=== PATIENT | male | born 1935 | race Caucasian/White ===

== ENCOUNTER 2019-06-05 10:36 | Emergency (ER) | payer OTHER, SELFPAY ==
[2019-06-05 10:43] VITALS: BP 151/71; PULSE 65; RESP 18; TEMP 36.7; O2SAT 98
[2019-06-05 11:20] LABS: Add Manual Diff / Slide Review NO; Basophils Absolute Auto 100 /uL (0-100); Basophils Percent Auto 0.8 % (0-2); Eosinophils Absolute Auto 400 /uL (0-450); Eosinophils Percent Auto 3.3 % (2-4); Hematocrit 35.8 % (41-53); Lymphocytes Absolute Auto 900 /uL (1100-4500); Lymphocytes Percent Auto 8.8 % (25-40); Mean Corpuscular HGB Conc 33.6 % (30-36); Mean Corpuscular Hemoglobin 32.3 PG (26-34); Mean Corpuscular Volume 96.2 fL (80-100); Monocytes Absolute Auto 700 /uL (0-900); Monocytes Percent Auto 6.2 % (3-14); Neutrophils Absolute Auto 8600 /uL (1500-7000); Neutrophils Percent Auto 80.9 % (50-75); Platelet Count 163 X10^3/uL (150-400); Red Blood Cell Count 3.72 X10^6/uL (4.5-5.9); Red Cell Distribution Width 15.3 % (11.6-14.8); White Blood Cell Count 10.6 X10^3/uL (4.5-11.0)
[2019-06-05 11:25] LABS: INR 2.1 (0.9-1.3); Prothrombin Time 23.9 SECONDS (10.1-12.7)
[2019-06-05 11:28] LABS: PTT Partial Thromboplastin Tim 35 SECONDS (26.4-36.2)
[2019-06-05 11:29] LABS: Alanine Aminotransferase 19 IU/L (21-72); Albumin 3.9 g/dL (3.5-5.0); Albumin Globulin Ratio 1.4 (1.0-2.8); Alkaline Phosphatase 62 U/L (38-126); Aspartate Aminotransferase 26 IU/L (17-59); BUN Creatinine Ratio 23.5 (6-22); Bilirubin Total 0.9 mg/dL (0.2-1.3); Blood Urea Nitrogen 40 mg/dL (9-20); Calcium 9.3 mg/dL (8.4-10.2); Carbon Dioxide 27 mmol/L (22-32); Chloride 107 mmol/L (98-107); Creatine Kinase 72 U/L (55-170); Estimated Glomerular Filt Rate 38.6 mL/min (>60); Globulin 2.7 g/dL (1.7-4.1); Glucose 113 mg/dL (80-110); HEMOLYSIS < 15 (0-50); Potassium 4.1 mmol/L (3.4-5.1); Sodium 143 mmol/L (137-145); Total Protein 6.6 g/dL (6.3-8.2)
[2019-06-05 11:40] LABS: Troponin I 0.015 ng/mL (0.01-0.034)
--- NOTE | 2019-06-05 12:16 | PC.NURSE ---
Pt has multiple vague complaints. States his stomach felt funny this morning, but this is resolved. Denies any chest pain or shortness of breath. States he had some increased swelling in his lower legs and this recently went way down and he lost 15 pounds. He uses a motorized w/c to get around. He can walk with a cane and some assistive leg braces. He feels he has not been drinking enough water lately. Pt is pink, warm, and dry. Does not appear to be in any acute distress. Easy work of breathing. Gave PO liquids to drink, per Dr. Arreguin.
--- NOTE | 2019-06-05 12:29 | ED.WEAKNESS ---
HPI - Weakness General Chief complaint: Weakness Stated complaint: unsteady,stomach 'bothering' him Time Seen by Provider: 06/05/19 12:05 Source: patient Mode of arrival: wheelchair Limitations: no limitations History of Present Illness HPI Narrative: PATIENT IS A 83-YEAR-OLD MALE WHEELCHAIR-BOUND PRESENTING WITH LIGHTHEADEDNESS. He states he is able to stand up and get dressed. Today when he did he got a little dizzy lightheaded he did not pass out. He has been having intermittent abdominal pain ongoing for the last 3 weeks. He has pain and then he has a bowel movement and feels better. He has no chest pain or heart palpitations no shortness of breath. No fevers. He overall is feeling better and requesting to go home at this time. He states he was started on furosemide for extreme lower extremity edema. He was taking 1 tablet a day. His primary a told him to take half a tablet every other day and that started yesterday. MD Complaint: generalized weakness Related Data Home Medications Medication Instructions Recorded Confirmed metoprolol tartrate 25 mg PO DAILY #0 04/14/13 06/05/19 morphine 1 tab PO BIDP PRN #0 04/14/13 06/05/19 allopurinol 300 mg PO DAILY #0 06/12/16 06/05/19 amlodipine [Norvasc] 2.5 mg PO QPM #0 05/31/17 06/05/19 atorvastatin [Lipitor] 40 mg PO BEDTIME #0 05/31/17 06/05/19 lisinopril 40 mg PO BID #0 05/31/17 06/05/19 prednisone 10 mg PO DAILY #0 05/31/17 06/05/19 warfarin [Coumadin] 2.5 mg PO SEE INSTRUCTIONS #0 05/31/17 06/05/19 furosemide 40 mg OR DAILY #0 06/30/17 06/05/19 potassium chloride 20 meq PO QPM 06/05/19 06/05/19 Allergies Allergy/AdvReac Type Severity Reaction Status Date / Time No Known Drug Allergies Allergy Unknown Verified 06/05/19 10:54 [NO KNOWN DRUG ALLERGIES] ALL METALS Allergy Mild TURNS Uncoded 01/25/18 12:15 GREEN TITANIUM IS OK Review of Systems Review of Systems ROS Unobtainable: All systems reviewed & are unremarkable except as noted in HPI and below Constitutional Denies chills, Denies fever(s), Denies lethargy and Reports weakness ENT Ears, Nose, Mouth, and Throat: Denies change in voice, Denies neck pain and Denies sore throat Cardiovascular Reports lightheadedness, Denies dyspnea and Denies dyspnea on exertion Respiratory Denies cough, Denies dyspnea, Denies dyspnea on exertion and Denies wheezing Gastrointestinal Gastrointestinal: Denies abdominal pain, Denies change in bowel habits, Denies diarrhea, Denies nausea and Denies vomiting Genitourinary Denies hematuria, Denies flank pain, Denies urinary incontinence and Denies urinary urgency Musculoskeletal Denies neck pain Integumentary/Breasts Denies pruritus, Denies erythema, Denies rash and Denies wounds Neurologic Reports weakness Allergic/Immunologic Denies wheezing [facility]LY [facility] Medical History Hyperlipidemia (Acute) Hypertension (Acute) Social History Smoking Status: Never smoker Social History Smoking Status: Never smoker Exam Initial Vital Signs Initial Vital Signs: Vital Signs Temperature 98.1 F 06/05/19 10:43 Pulse Rate 65 06/05/19 10:43 Respiratory Rate 18 06/05/19 10:43 Blood Pressure 151/71 H 06/05/19 10:43 Pulse Oximetry 98 06/05/19 10:43 GENERAL: Well-appearing male in wheelchair HEENT: Head atraumatic,EOMI, pupils reactive, face symmetric, [moist] mucous membranes CARDIOVASCULAR: Regular rate and rhythm without murmurs, rubs or gallops. RESPIRATORY: Breath sounds equal bilaterally, no wheezes rales or rhonchi. ABDOMEN: Soft, nontender. Normoactive bowel sounds all 4 quadrants. No guarding or rebound. EXTREMITIES: Normal range of motion, no clubbing or edema. Neurovascularly intact NEUROLOGICAL: Alert and oriented x4. Speech is normal SKIN: Warm, dry, no laceration, no petechiae, no rashes or lesions. Course Orders Ordered: ED Orders 06/05/19 11:07 Complete Blood Count AUTO DIFF Stat Comprehensive Metabolic Panel Stat Partial Thromboplastin Time Stat Prothrombin Time INR Stat Troponin & CK Cardiac Panel Stat 06/05/19 11:58 EKG-12 Lead Stat Vital Signs - 8 hr 06/05/19 10:43 06/05/19 12:46 Temperature 98.1 F Pulse Rate 65 71 Respiratory Rate 18 12 Blood Pressure 151/71 H Blood Pressure [Left Arm] 140/73 Pulse Oximetry 98 97 MDM - Weakness Lab Data Attestation: I reviewed the patient's lab results. Result diagrams: 06/05/19 11:07 06/05/19 11:07 Lab Results 06/05/19 06/05/19 06/05/19 Range/Units 11:07 11:07 11:07 WBC 10.6 (4.5-11.0) X10^3/uL RBC 3.72 L (4.5-5.9) X10^6/uL Hgb 12.0 L (13.5-17.5) g/dL Hct 35.8 L (41-53) % MCV 96.2 (80-100) fL MCH 32.3 (26-34) PG MCHC 33.6 (30-36) % RDW 15.3 H (11.6-14.8) % Plt Count 163 (150-400) X10^3/uL Neut % (Auto) 80.9 H (50-75) % Lymph % (Auto) 8.8 L (25-40) % Cameron % (Auto) 6.2 (3-14) % Eos % (Auto) 3.3 (2-4) % Baso % (Auto) 0.8 (0-2) % Neut # (Auto) 8600 H (9604-3106) /uL Lymph # (Auto) 900 L (5799-1979) /uL Cameron # (Auto) 700 (0-900) /uL Eos # (Auto) 400 (0-450) /uL Baso # (Auto) 100 (0-100) /uL PT 23.9 H (10.1-12.7) SECONDS INR 2.1 H (0.9-1.3) APTT 35 (26.4-36.2) SECONDS Sodium 143 (137-145) mmol/L Potassium 4.1 (3.4-5.1) mmol/L Chloride 107 (98-107) mmol/L Carbon Dioxide 27 (22-32) mmol/L BUN 40 H (9-20) mg/dL Creatinine 1.70 H (0.66-1.25) mg/dL Estimated GFR 38.6 L (>60) mL/min BUN/Creatinine Ratio 23.5 H (6-22) Glucose 113 H (80-110) mg/dL Calcium 9.3 (8.4-10.2) mg/dL Total Bilirubin 0.9 (0.2-1.3) mg/dL AST 26 (17-59) IU/L ALT 19 L (21-72) IU/L Alkaline Phosphatase 62 (38-126) U/L Total Creatine Kinase 72 (55-170) U/L CK-MB (CK-2) TNP CK-MB (CK-2) Rel Index TNP Troponin I 0.015 (0.01-0.034) ng/mL Total Protein 6.6 (6.3-8.2) g/dL Albumin 3.9 (3.5-5.0) g/dL Globulin 2.7 (1.7-4.1) g/dL Albumin/Globulin Ratio 1.4 (1.0-2.8) MDM Narrative Medical decision making narrative: Patient is slightly dehydrated BUN 40 creatinine 1.7 baseline seems to be about 1.3. His Lasix has already been cut back. He is tolerating oral fluids. He overall feels better. At this time no need for hospitalization. Discharge Plan Departure Patient Disposition: Home Clinical Impression: Acute dehydration Discharge Date/Time: 06/05/19 13:03 Interventions: ED Discharge Assessment Last Done: 06/05/19 13:03 Instructions: Dehydration Activity Restrictions/Additional Instructions: *You have been diagnosed with mild dehydration *What to do: You are likely slightly dehydrated from the furosemide you have been taking. I think with the decreased furosemide as your doctor has prescribed it will help. Increase her water intake slightly over the next few days this will also help. *Continue to take medications as directed *Follow up with your primary care provider in 2-3 days *Return to ER if you should have no lightheadedness, passing out, chest pain, heart palpitations increased abdominal or any new, worsening or concerning symptoms Prescriptions: No Action morphine 15 MG tablet 1 tab PO BIDP PRN (Reason: pain) Qty: 0 RF: 0 metoprolol tartrate 25 MG tablet 25 mg PO DAILY Qty: 0 RF: 0 allopurinol 100 MG tablet 300 mg PO DAILY Qty: 0 RF: 0 atorvastatin [Lipitor] 40 MG tablet 40 mg PO BEDTIME Qty: 0 RF: 0 amlodipine [Norvasc] 2.5 MG tablet 2.5 mg PO QPM Qty: 0 RF: 0 warfarin [Coumadin] 2.5 MG tablet 2.5 mg PO SEE INSTRUCTIONS Qty: 0 RF: 0 lisinopril 40 MG tablet 40 mg PO BID Qty: 0 RF: 0 prednisone 5 MG tablet 10 mg PO DAILY Qty: 0 RF: 0 furosemide 40 MG tablet 40 mg OR DAILY Qty: 0 RF: 0 potassium chloride 20 mEq tablet,ER particles/crystals 20 meq PO QPM RF: 0 Referrals: Benjamin Rodriguez DO [Primary Care Provider] -
[2019-06-05 12:46] VITALS: BP 140/73; PULSE 71; RESP 12; O2SAT 97
== END 2019-06-05 13:03 | disposition home or self-care (01) ==
PROVIDERS: Emergency Provider Emergency Medicine; Family Provider Family Medicine; PCP Family Medicine
DX: E86.0 Dehydration (principal)
CPT/HCPCS: 36415; 80053; 82550; 84484; 85025; 85610; 85730; 93005; 99282; 99284

== ENCOUNTER 2021-02-28 14:44 | Observation (INO) | payer OTHER, SELFPAY ==
[2021-02-28] VITALS (12 sets, daily range): BP systolic 81–133; BP diastolic 53–78; PULSE 70–90; RESP 17–23; TEMP 36.1–36.4; O2SAT 91–100; BMI 36.3; BMI 32.4
--- NOTE | 2021-02-28 14:50 | DI.RAD.S_ITS ---
PROCEDURE: XR CHEST 1V INDICATIONS: unresponsive TECHNIQUE: One view of the chest was acquired. COMPARISON: [facility], CR, CHEST 1 VIEW, 05/12/2013, 0:03. [facility], CR, XR CHEST 2 VIEWS, 08/13/2020, 8:24. FINDINGS: Surgical changes and devices: Single lead left chest wall cardiac device and unchanged positioning. Lungs and pleura: Lungs are clear. No pleural effusions or pneumothorax. Mediastinum: Mediastinal contours appear normal. Heart size is normal. Vascular calcifications within the aorta. Bones and chest wall: No suspicious bony lesions. Overlying soft tissues appear unremarkable. IMPRESSION: No evidence of an acute cardiopulmonary abnormality. Dictated by: Joseph Jeffries D.O. on 02/28/2021 at 14:23 Approved by: Joseph Jeffries D.O. on 02/28/2021 at 14:25
--- NOTE | 2021-02-28 15:28 | ED.RECABL ---
HPI - Recheck/Abnormal Lab/Rx General Chief Complaint: Recheck/Abnormal Lab/Rx Stated Complaint: Afib Time Seen by Provider: 02/28/21 14:48 Source: EMS Mode of arrival: EMS Limitations: no limitations History of Present Illness HPI narrative: 85-year-old male nonsmoker with history of atrial fibrillation, sick sinus syndrome, pacemaker placement, hypertension, chronic kidney disease, CHF presents by EMS for evaluation of an unresponsive episode just prior to arrival. He had an extensive recent medical history that started with bilateral lower extremity cellulitis for which he was admitted at [facility] for 6 days and then subsequently discharged home. He had become increasingly weak and went back to the hospital was found to have acute renal injury with creatinine elevated to 4.2. He was transferred to [facility] for further evaluation. He had just been discharged earlier today and was in a cabulance heading to a halfway facility in [place] when he mentioned that he felt some pain in his neck and then became unresponsive. He was transported here and had returned to his baseline, with no ongoing symptoms. Patient denies any chest pain or shortness of breath. He states that his neck has been bothering him for much of the time in the hospital because they had him positioned awkwardly and also that he was sleeping poorly. Initial visit (ago): day(s) Related Data Home Medications Medication Instructions Recorded Confirmed metoprolol tartrate 25 mg PO DAILY #0 04/14/13 06/05/19 morphine 1 tab PO BIDP PRN #0 04/14/13 06/05/19 allopurinol 300 mg PO DAILY #0 06/12/16 06/05/19 amlodipine [Norvasc] 2.5 mg PO QPM #0 05/31/17 06/05/19 atorvastatin [Lipitor] 40 mg PO BEDTIME #0 05/31/17 06/05/19 lisinopril 40 mg PO BID #0 05/31/17 06/05/19 prednisone 10 mg PO DAILY #0 05/31/17 06/05/19 warfarin [Coumadin] 2.5 mg PO SEE INSTRUCTIONS #0 05/31/17 06/05/19 furosemide 40 mg OR DAILY #0 06/30/17 06/05/19 potassium chloride 20 meq PO QPM 06/05/19 06/05/19 Allergies Allergy/AdvReac Type Severity Reaction Status Date / Time No Known Drug Allergies Allergy Unknown Verified 02/28/21 15:00 [NO KNOWN DRUG ALLERGIES] ALL METALS Allergy Mild TURNS Uncoded 02/28/21 15:00 GREEN TITANIUM IS OK Review of Systems Constitutional Constitutional: Denies chills, Denies fatigue, Denies fever(s), Denies frequent falls, Denies lethargy and Denies weakness Eyes Eyes: Denies change in vision, Denies eye discharge, Denies irritation and Denies loss of vision ENT Ears, Nose, Mouth, and Throat: Denies change in voice, Denies dizziness, Denies neck pain, Denies sore throat and Denies throat swelling Cardiovascular Cardiovascular: Denies chest pain, Denies irregular heart rhythm, Reports lightheadedness, Denies palpitations, Denies dyspnea, Denies dyspnea on exertion and Denies orthopnea Respiratory Respiratory: Denies cough, Denies dyspnea, Denies dyspnea on exertion and Denies wheezing Gastrointestinal Gastrointestinal: Denies abdominal pain, Denies change in bowel habits, Denies diarrhea, Denies nausea and Denies vomiting Musculoskeletal Musculoskeletal: Denies neck pain and Denies numbness Integumentary/Breasts Skin/Breast: Denies pruritus, Denies erythema, Denies rash and Denies wounds Neurologic Neurologic: Denies behavioral changes, Denies confusion, Denies dizziness, Denies frequent falls, Denies loss of vision, Denies numbness and Denies weakness Psychiatric Psychiatric: Denies anxiety, Denies behavioral changes, Denies confusion, Denies depression, Denies homicidal ideation and Denies suicidal ideation Endocrine Endocrine: Denies fatigue, Denies flushing and Denies palpitations Hematologic/Lymphatic Hematologic/Lymphatic: Denies easy bruising Allergic/Immunologic Allergic/Immunologic: Denies urticaria, Denies throat swelling and Denies wheezing Patient History Medical History (Updated 02/28/21 @ 17:57 by Franc Anderson DO) Hyperlipidemia Hypertension Social History Smoking Status: Never smoker Smoking Status: Never smoker alcohol intake frequency: 0-2 drinks per day Substance Use Type: does not use Exam Narrative Exam Narrative: GENERAL: [85] year old patient appears stated age. Frail and elderly, resting comfortably HEAD: Atraumatic. Normocephalic. EYES: Pupils equal round and reactive. Extraocular motions intact. No scleral icterus. No injection or drainage. ENT: Nose without bleeding, purulent drainage. Throat without erythema, tonsillar hypertrophy or exudate. Airway patent. NECK: Trachea midline. Non tender CARDIOVASCULAR: Regular rate and rhythm without murmurs, gallops, or rubs. RESPIRATORY: Clear to auscultation. Breath sounds equal bilaterally. No wheezes, rales, or rhonchi. GASTROINTESTINAL: Abdomen soft, non-tender, nondistended. EXTREMITIES: No edema or joint tenderness. BACK: Nontender without deformity or crepitance. No flank tenderness. NEURO: AOx3. SKIN: Multiple bruises in various stages of healing on extremities. No rash or erythema of visible areas Initial Vital Signs Initial Vital Signs: Vital Signs Temperature 97.6 F 02/28/21 14:54 Pulse Rate 76 02/28/21 14:54 Respiratory Rate 22 02/28/21 14:54 Blood Pressure 81/56 L 02/28/21 14:54 Pulse Oximetry 96 02/28/21 14:54 Course Orders Ordered: ED Orders 02/28/21 14:50 XR chest 1V Stat EKG-12 Lead Stat 02/28/21 15:25 Complete Blood Count AUTO DIFF Stat Comprehensive Metabolic Panel Stat Lactate (Lactic Acid) Stat Lipase Stat Magnesium Stat NT-proBNP (BNP-Adult 18+) Stat Troponin & CK Cardiac Panel Stat 02/28/21 17:06 Lactate (Lactic Acid) Stat Sodium Chloride (Normal Saline 0.9%) 1,000 mls @ 125 mls/hr IV CONT EDMUND Last Admin: 02/28/21 15:52 Dose: 125 mls/hr Documented by: ERIK Vital Signs Vital signs: Vital Signs - 8 hr 02/28/21 14:54 02/28/21 15:00 02/28/21 15:01 Temperature 97.6 F Pulse Rate 76 79 Respiratory Rate 22 21 Blood Pressure 81/56 L 87/53 L Pulse Oximetry 96 98 02/28/21 15:30 02/28/21 15:34 Temperature Pulse Rate 82 82 Respiratory Rate 22 23 Blood Pressure 99/64 Pulse Oximetry 91 98 MDM - Recheck/Abnormal Lab/Rx Lab Data Result diagrams: 02/28/21 15:25 02/28/21 15:25 Labs: Lab Results 02/28/21 02/28/21 02/28/21 Range/Units 15:25 15:25 15:25 WBC 13.8 H (4.5-11.0) X10^3/uL RBC 3.95 L (4.5-5.9) X10^6/uL Hgb 12.0 L (13.5-17.5) g/dL Hct 37.2 L (41-53) % MCV 94.3 (80-100) fL MCH 30.3 (26-34) PG MCHC 32.1 (30-36) % RDW 16.5 H (11.6-14.8) % Plt Count 123 L (150-400) X10^3/uL Neut % (Auto) 95.3 H (50-75) % Lymph % (Auto) 2.9 L (25-40) % Crawford % (Auto) 1.8 L (3-14) % Eos % (Auto) 0.0 L (2-4) % Baso % (Auto) 0.0 (0-2) % Neut # (Auto) 91301 H (2154-0191) /uL Lymph # (Auto) 400 L (6159-5764) /uL Crawford # (Auto) 300 (0-900) /uL Eos # (Auto) 0 (0-450) /uL Baso # (Auto) 0 (0-100) /uL Sodium 139 (137-145) mmol/L Potassium 4.8 (3.4-5.1) mmol/L Chloride 111 H (98-107) mmol/L Carbon Dioxide 22 (22-32) mmol/L BUN 53 H (9-20) mg/dL Creatinine 1.57 H (0.66-1.25) mg/dL Estimated GFR 42.1 L (>60) mL/min BUN/Creatinine Ratio 33.8 H (6-22) Glucose 108 (80-110) mg/dL Lactate 2.6 H (0.7-2.1) mmol/L Calcium 8.5 (8.4-10.2) mg/dL Magnesium 2.2 (1.6-2.3) mg/dL Total Bilirubin 0.7 (0.2-1.3) mg/dL AST 36 (17-59) IU/L ALT 41 (<50) IU/L Alkaline Phosphatase 63 (38-126) U/L Total Creatine Kinase 41 L (55-170) U/L CK-MB (CK-2) TNP CK-MB (CK-2) Rel Index TNP Troponin I 0.062 H (0.01-0.034) ng/mL NT-Pro-B Natriuret Pep 1790 H (<450) pg/mL Total Protein 4.9 L (6.3-8.2) g/dL Albumin 2.8 L (3.5-5.0) g/dL Globulin 2.1 (1.7-4.1) g/dL Albumin/Globulin Ratio 1.3 (1.0-2.8) Lipase 524 H (23-300) U/L Point of Care Testing Glucose POC 272 Imaging Data Chest x-ray: Radiologist's Impression: Castro Ayala M [address] [id number] ReportSigned Patient: Castro Ayala R#: [id number]: 1935cct:[id number]/Sex: 85 / MDate of Service: 02/28/21Loc: EDAccession Number: [id number] Procedure: XR chest 1V Ordering Provider: Franc Anderson D.O. PROCEDURE: XR CHEST 1V INDICATIONS: unresponsive TECHNIQUE: One view of the chest was acquired. COMPARISON: [facility], , CHEST 1 VIEW, 05/12/2013, 0:03. [facility], CR, XR CHEST 2 VIEWS, 08/13/2020, 8:24. FINDINGS: Surgical changes and devices: Single lead left chest wall cardiac device and unchanged positioning. Lungs and pleura: Lungs are clear. No pleural effusions or pneumothorax. Mediastinum: Mediastinal contours appear normal. Heart size is normal. Vascular calcifications within the aorta. Bones and chest wall: No suspicious bony lesions. Overlying soft tissues appear unremarkable. IMPRESSION: No evidence of an acute cardiopulmonary abnormality. Dictated by: Joseph Jeffries D.O. on 02/28/2021 at 14:23 Approved by: Joseph Jeffries D.O. on 02/28/2021 at 14:25 MDM Narrative Medical decision making narrative: Patient feels quite well and free of any complaint. He does have a slight elevation in his lactate but because of this is unclear. He has a very difficult lab draw which raises the suspicion of an eroding S elevation. He does not show any signs of sepsis, has no fever or chills, blood pressure, heart rate in pulse are all well within normal limits. He is comfortably resting and requesting to be sent home by the same cap be lanced that brought him Discharge Plan Departure Patient Disposition: Home Clinical Impression: Near syncope Instructions: DI for Syncope in Adults (Fainting) Activity Restrictions/Additional Instructions: *You have been diagnosed with [ near syncopal episode] *What to do: *Please continue to take your regular medications as directed. [ ] New medication prescriptions sent to your pharmacy: [ ] [ ] New medication written as a paper prescription [x] No new medications given *Please follow up with your primary care provider in 2-3 days, call for an appointment. Let them know you were seen in the Emergency Department and that we ask that you be seen in follow up. We will electronically transmit a record of today's note if your PCP is in our system *If you do not have a primary care provider please contact the [facility] Resource line at [phone]. They will ask some questions about your medical history and help get you set up with a doctor in the community. *Return to Emergency Department if you should have any new, worsening or concerning symptoms, such as [fever greater than 101 F, shaking chills, worsening pain, persistent vomiting or other bothersome symptoms] Prescriptions: No Action morphine 15 MG tablet 1 tab PO BIDP PRN (Reason: pain) Qty: 0 RF: 0 metoprolol tartrate 25 MG tablet 25 mg PO DAILY Qty: 0 RF: 0 allopurinol 100 MG tablet 300 mg PO DAILY Qty: 0 RF: 0 atorvastatin [Lipitor] 40 MG tablet 40 mg PO BEDTIME Qty: 0 RF: 0 amlodipine [Norvasc] 2.5 MG tablet 2.5 mg PO QPM Qty: 0 RF: 0 warfarin [Coumadin] 2.5 MG tablet 2.5 mg PO SEE INSTRUCTIONS Qty: 0 RF: 0 lisinopril 40 MG tablet 40 mg PO BID Qty: 0 RF: 0 prednisone 5 MG tablet 10 mg PO DAILY Qty: 0 RF: 0 furosemide 40 MG tablet 40 mg OR DAILY Qty: 0 RF: 0 potassium chloride 20 mEq tablet,ER particles/crystals 20 meq PO QPM RF: 0 Referrals: Benjamin Rodriguez DO [Primary Care Provider] -
[2021-02-28 15:47] LABS: Add Manual Diff / Slide Review NO; Basophils Absolute Auto 0 /uL (0-100); Eosinophils Absolute Auto 0 /uL (0-450); Hematocrit 37.2 % (41-53); Lymphocytes Absolute Auto 400 /uL (1100-4500); Lymphocytes Percent Auto 2.9 % (25-40); Mean Corpuscular HGB Conc 32.1 % (30-36); Mean Corpuscular Hemoglobin 30.3 PG (26-34); Mean Corpuscular Volume 94.3 fL (80-100); Monocytes Absolute Auto 300 /uL (0-900); Monocytes Percent Auto 1.8 % (3-14); Neutrophils Absolute Auto 13200 /uL (1500-7000); Neutrophils Percent Auto 95.3 % (50-75); Platelet Count 123 X10^3/uL (150-400); Red Blood Cell Count 3.95 X10^6/uL (4.5-5.9); Red Cell Distribution Width 16.5 % (11.6-14.8); White Blood Cell Count 13.8 X10^3/uL (4.5-11.0)
[2021-02-28] MEDS: SODIUM CHLORIDE 0.9% 1,000 ML 125 ML IV (15:52)
[2021-02-28 15:58] LABS: Alanine Aminotransferase 41 IU/L (<50); Albumin 2.8 g/dL (3.5-5.0); Albumin Globulin Ratio 1.3 (1.0-2.8); Alkaline Phosphatase 63 U/L (38-126); Aspartate Aminotransferase 36 IU/L (17-59); BUN Creatinine Ratio 33.8 (6-22); Bilirubin Total 0.7 mg/dL (0.2-1.3); Blood Urea Nitrogen 53 mg/dL (9-20); Calcium 8.5 mg/dL (8.4-10.2); Carbon Dioxide 22 mmol/L (22-32); Chloride 111 mmol/L (98-107); Creatine Kinase 41 U/L (55-170); Estimated Glomerular Filt Rate 42.1 mL/min (>60); Globulin 2.1 g/dL (1.7-4.1); Glucose 108 mg/dL (80-110); HEMOLYSIS 33 (0-50); Lipase 524 U/L (23-300); Magnesium 2.2 mg/dL (1.6-2.3); Potassium 4.8 mmol/L (3.4-5.1); Sodium 139 mmol/L (137-145); Total Protein 4.9 g/dL (6.3-8.2)
[2021-02-28 15:59] LABS: Lactate (Lactic Acid) 2.6 mmol/L (0.7-2.1)
[2021-02-28 16:10] LABS: NT-proBNP (BNP-Adult 18+) 1790 pg/mL (<450); Troponin I 0.062 ng/mL (0.01-0.034)
[2021-02-28 17:37] LABS: Reflexed Lactate in 2 Hours Y
--- NOTE | 2021-02-28 20:00 | PM.HP.1 ---
History of Present Illness History of Present Illness Date Patient Seen: 02/28/21 Time Patient Seen: 20:00 Chief complaint: Afib Narrative: Patient is a 85-year-old male Castro Ayala who presents via EMS for evaluation of an unresponsive episode just prior to arrival. Patient has an extensive recent medical history that started with bilateral lower extremity cellulitis. In early January the patient was in inpatient of [facility] for 6 days then returned home with home health and wound care, a week later the patient developed confusion and was unable to get off the commode called Fire Department which then transported him to [facility] ED again and was found to have acute renal injury with creatinine elevated to 4.2. He was transferred to [facility] for further evaluation of acute on chronic renal failure, hyperkalemia, leukocytosis, lactic acidosis, hypertension, distal it heart failure, atrial fibrillation, sick sinus syndrome, asthma, bulbous pemphigoid, chronic lymph edema, hyperlipidemia, and arthritis. He had just been discharged earlier today and was in a cab heading to a SNF in [place] where he would be hospitalized for 6 days and then subsequently discharged home. In the cab the patient mentioned to the taxi truck driver that he felt some pain in his neck and then became unresponsive. He was transported here to [facility] by which time he had returned to his baseline, with no ongoing symptoms. Patient denies any chest pain, changes in vision, weakness, difficulty with swallowing, difficulty with speech, incontinence of urine or bowel, shortness of breath, fever, nausea, vomiting, diarrhea, chills, or body aches. He states that his neck has been bothering him for much of the time in the hospital because they had him positioned awkwardly and also that he was sleeping poorly. Patient has a history of atrial fibrillation, pacemaker (on Coumadin), sick sinus syndrome, pacemaker placement, hypertension, hyperlipidemia, asthma, chronic lymphedema, bulbous Pemphigoid, chronic kidney disease, and diastolic CHF with preserved EF. Patient's vitals upon admit temp 97.6?, BP 99/64, HR 82, R 23, O2 saturation 98% on room air. Patient's labs WBC 13.8, HGB 12, HCT 37.2, Cl 111, BUN 53, creatinine 1.57, EGFR 42.1, BUN creatinine ratio 33.8 RBC 3.95, RDW 16.5, platelets 123, lactate 2.6, lipase 524, troponin 0.062, proBNP 1790, total protein 4.9, albumin 2.8. Chest x-ray: Shows no acute cardiopulmonary abnormalities. Patient History Medical History (Updated 03/01/21 @ 02:26 by ABBI Borges-DILMA) Atrial fibrillation Bullous pemphigoid CHF (congestive heart failure) CKD (chronic kidney disease) History of Mohs micrographic surgery for skin cancer Hyperlipidemia Hypertension Pacemaker Surgical History (Updated 03/01/21 @ 02:26 by ABBI Borges-DILMA) History of permanent cardiac pacemaker placement History of surgery on wrist History of total hip arthroplasty Family & Social History Family History Father Pacemaker Brother Pacemaker Mother Alzheimer's dementia Brother Alzheimer's dementia Safety & Behavioral: Feels Safe in Current Yes, lives with spouse and is retired Environment Been Physically Hurt or No Threatened By a Person Tobacco & Substance use: Smoking Status Never smoker alcohol intake frequency 0-2 drinks per day white wine Substance Use Type Never Meds Home Medications and Allergies Home Medications Medication Instructions Recorded Confirmed Type metoprolol tartrate 25 mg PO DAILY #0 04/14/13 02/28/21 History morphine 1 tab PO BIDP PRN #0 04/14/13 02/28/21 History atorvastatin [Lipitor] 40 mg PO BEDTIME #0 05/31/17 02/28/21 History prednisone 10 mg PO DAILY #0 05/31/17 02/28/21 History warfarin [Coumadin] 2.5 mg PO SEE INSTRUCTIONS #0 05/31/17 02/28/21 History furosemide 20 mg OR DAILY #0 06/30/17 02/28/21 History potassium chloride 20 meq PO QPM 06/05/19 02/28/21 History allopurinol 100 mg PO DAILY 02/28/21 02/28/21 History amlodipine 2.5 mg PO BEDTIME 02/28/21 02/28/21 History cyanocobalamin (vitamin B-12) 250 mcg PO DAILY 02/28/21 02/28/21 History doxycycline hyclate 100 mg PO BID 02/28/21 02/28/21 History lisinopril 20 mg PO BID 02/28/21 02/28/21 History oxycodone 5 mg PO Q4H PRN 02/28/21 02/28/21 History Allergies Allergy/AdvReac Type Severity Reaction Status Date / Time No Known Drug Allergies Allergy Unknown Verified 02/28/21 15:00 [NO KNOWN DRUG ALLERGIES] ALL METALS Allergy Mild TURNS Uncoded 02/28/21 15:00 GREEN TITANIUM IS OK Review of Systems Review of Systems ROS: Yes All systems reviewed with the patient and are negative except as otherwise documented Musculoskeletal Comments: Lower extremity edema Integumentary/Breasts Skin/Breast: Reports wounds (To lower leg and foot -right) Hematologic/Lymphatic Hematologic/Lymphatic: Reports easy bleeding and Reports easy bruising Exam Vital Signs (past 8 hours): - 02/28/21 14:54 02/28/21 15:00 02/28/21 15:01 Temperature 97.6 F Pulse Rate 76 79 Respiratory Rate 22 21 Blood Pressure 81/56 L 87/53 L Pulse Oximetry 96 98 02/28/21 15:30 02/28/21 15:34 Temperature Pulse Rate 82 82 Respiratory Rate 22 23 Blood Pressure 99/64 Pulse Oximetry 91 98 Oxygen Delivery Method Room Air Narrative Exam Narrative: General: Patient is a well-developed, well-nourished in no distress at this time. HEENT: Normocephalic, atraumatic, extraocular muscles intact, oral pharynx is clear and mucous membranes are moist. Neck is supple and symmetric, trachea is midline, no adenopathy, no thyroid enlargement, nontender, no masses palpated. Negative for JVD Chest: Normal AP diameter and contour without kyphoscoliosis, no nasal flaring, retractions, or tachypneic labored Lungs: Auscultation of all lung kirby are clear without adventitious sounds, wheezes, rhonchi, or rales. Cardio: regular rate and rhythm without murmur, rubs, or gallops, no carotid bruit, no cardiac pulsations present. Abdomen: Soft nontender, negative for organomegaly, or masses. Bowel sounds are present in all 4 quadrants without guarding or rebound, no CVA tenderness. Musculoskeletal: Muscle strength and tone are equal within normal limits, no deformity, crepitus, effusions, cyanosis, or clubbing present. Full range of motion intact radial and pedal pulses are normal. Skin: Significant bruising over bilateral arms elbows with dressings in place due to frequent bleeding, bilateral lower extremities with edema, ulcerations to the top of the right foot and to the lower leg area extremely sensitive to touch. Neuro: Alert and orientated x3, strength is +5/5 in all extremities, sensation to touch intact, no gross deficits noted of cranial nerves. Psych: Patient has a well-kept appearance, appropriate affect, mental status attitude thought context and judgment are appropriate for age. Objective Labs Result Diagrams: 02/28/21 15:25 02/28/21 15:25 Labs: Laboratory Results - last 24 hr 02/28/21 02/28/21 02/28/21 15:25 15:25 15:25 WBC 13.8 H RBC 3.95 L Hgb 12.0 L Hct 37.2 L MCV 94.3 MCH 30.3 MCHC 32.1 RDW 16.5 H Plt Count 123 L Neut % (Auto) 95.3 H Lymph % (Auto) 2.9 L [place] % (Auto) 1.8 L Eos % (Auto) 0.0 L Baso % (Auto) 0.0 Neut # (Auto) 02432 H Lymph # (Auto) 400 L [place] # (Auto) 300 Eos # (Auto) 0 Baso # (Auto) 0 Sodium 139 Potassium 4.8 Chloride 111 H Carbon Dioxide 22 BUN 53 H Creatinine 1.57 H Estimated GFR 42.1 L BUN/Creatinine Ratio 33.8 H Glucose 108 Lactate 2.6 H Calcium 8.5 Magnesium 2.2 Total Bilirubin 0.7 AST 36 ALT 41 Alkaline Phosphatase 63 Total Creatine Kinase 41 L CK-MB (CK-2) TNP CK-MB (CK-2) Rel Index TNP Troponin I 0.062 H NT-Pro-B Natriuret Pep 1790 H Total Protein 4.9 L Albumin 2.8 L Globulin 2.1 Albumin/Globulin Ratio 1.3 Lipase 524 H Assessment & Plan Assessment & Plan narrative: This patient requires acute care inpatient hospital management for near syncopal episode. The patient is at much higher risk for medical and surgical complications because of his atrial fibrillation, pacemaker (on Coumadin), sick sinus syndrome, pacemaker placement, hypertension, chronic kidney disease, and CHF. These factors increase the difficulty and complexity of medical and surgical interventions and increases the chances of poor outcomes such as morbidity and mortality. As well as the patient's recent hospitalization and ongoing health concerns requiring SNF placement. The SNF unit in [place] stated that because the patient had a change in his condition hence near syncopal episode his case would have to be reviewed and then re-expanded for admission apparently the appropriate individuals to complete this process will not be available until tomorrow. The SNF unit in [place] refused patient admission. Their admissions will re-evaluate patient's case tomorrow to determine if he is eligible for admit once again. Patient's stay is expected to be less than 2 midnights, as he is expected to be admitted to SNF tomorrow. 1. Near syncopal episode-witnessed, acute, not present on admission -unclear etiology possible to be atrial Fibor CHF exacerbation Pro BNP 1790 -patient to be monitored on tele medicine, vital signs q.4 hours, intake and output monitored Q shift, weight measure daily, diet:Heart Healthy -trend troponin x3, of repeat proBNP in a.m. -Unable to get Stroke MR due to pacemaker in place. vitals upon admit temp 97.6?, BP 99/64, HR 82, R 23, O2 saturation 98% on room air. Patient's labs WBC 13.8, HGB 12, HCT 37.2, Cl 111, BUN 53, creatinine 1.57, EGFR 42.1, BUN creatinine ratio 33.8 RBC 3.95, RDW 16.5, platelets 123, lactate 2.6, lipase 524, troponin 0.062, proBNP 1790, total protein 4.9, albumin 2.8. Chest x-ray: Shows no acute cardiopulmonary abnormalities. 2. Atrial fibrillation, acute on chronic, pacemaker in place patient on Coumadin secondary to sick sinus syndrome, in the setting of diastolic CHF with EF 60-65%, hypertension, hyperlipidemia, complicated by CKD, not present on admission-stable -patient admitted on tele med. -labs BMP, CBC, trending troponins x3 q.6 hours, TSH, monitor electrolytes and supplement as indicated keep potassium> 4, magnesium> 2 -monitor for complications stroke, heart failure, dementia -continue patient's Coumadin, amlodipine, atorvastatin, Lasix, lisinopril, metoprolol, potassium, and Coumadin -Echo: 02/26/2021: Compared to the echo done on 06/15/2017 aortic stenosis has progressed from mild to moderately on this study EF 60-65% 3. Mild Anemia, acute, present on admission -As evidence by a hemoglobin 12 and hematocrit 37.2, RBC 3.95, RDW 16.5, platelets 123 -will continue to monitor H/H 4. Leukocytosis, Mild, acute, present on admission As evidence by a WBC 13.8 /Neut#[id number] signs of gross infection of bilateral lower extremities, chest x-ray: no acute pathology. Patient may have chronically elevated wbc's due to chronic prednisone use. Continue to monitor. -check ESR, CRP U/A, and procalcitonin-if patient develops any fevers will order broad-spectrum antibiotics and blood cultures. 5. Bulbous Pemphigoid, acute on chronic, present on admission -continue wound care changes. -monitor for signs of infection/decreased perfusion -continue Lasix 6. Rheumatoid arthritis, acute on chronic, not present on admission -Continue patient's prednisone Code status: DNR COVID PCR: Negative Surrogate decision maker: Spouse DVT/VTE prophylaxis: Medication contraindicated continue patient's Coumadin and SCDs applied Scores GCS Parker coma scale eye opening: Spontaneous [place] coma scale verbal response: Orientated Parker coma scale motor response: Obey commands Parker coma scale total score: 15 NIHSS Level of Conciousness: Alert, keenly responsive Ask month/age: Answers both questions correctly. Open/close eyes, close hand: Performs both tasks correctly Best gaze horizontal: Normal Visual kirby: No visual loss Facial palsy: Normal symetrical movement Left arm drift: No drift for full 10 sec Right arm drift: No drift for full 10 sec Left leg drift: No drift for full 5 sec Right leg drift: No drift for full 5 sec Limb ataxia: Absent Sensory on face/arms/legs: Normal, no sensory loss Best language: No aphasia, normal Dysarthria: Normal Extinction or inattention: No abnormality Total NIH Stroke scale score: 0 Wells' Criteria for PE Clinical signs and symptoms of DVT: No PE is #1 Dx or equally likely: No Heart rate > 100: No Immobilization at least 3 days or surg in previous 4 weeks: Yes History of PE or DVT: No Hemoptysis: No Malignancy w/Treatment within 6 months or palliative: No Wells' PE Score total: 1.5 Quality MIPS - Admit I confirm the patient?s Advance Care Plan is present, Code status is documented, Surrogate decision maker is in patient?s record [If Yes, STOP here]: Yes
--- NOTE | 2021-02-28 20:52 | PC.NURSE ---
Pt tested for covid at start of [facility] admission and again yesterday for admit to [facility]. Both tests negative. Provider ok to not do admit covid swab.
[2021-02-28 20:53] LABS: Troponin I 0.056 ng/mL (0.01-0.034)
[2021-02-28] MEDS: LACTATED RINGERS 1,000 ML 60 ML IV (22:52)
[2021-03-01] VITALS (11 sets, daily range): BP systolic 113–128; BP diastolic 60–95; PULSE 64–105; RESP 12–18; TEMP 35.6–36.9; O2SAT 94–100
[2021-03-01 05:51] LABS: Add Manual Diff / Slide Review NO; Basophils Absolute Auto 100 /uL (0-100); Basophils Percent Auto 0.5 % (0-2); Eosinophils Absolute Auto 0 /uL (0-450); Eosinophils Percent Auto 0.3 % (2-4); Hematocrit 30.9 % (41-53); Hemoglobin 10.2 g/dL (13.5-17.5); Lymphocytes Absolute Auto 1000 /uL (1100-4500); Lymphocytes Percent Auto 7.1 % (25-40); Mean Corpuscular HGB Conc 32.9 % (30-36); Mean Corpuscular Hemoglobin 30.5 PG (26-34); Mean Corpuscular Volume 92.9 fL (80-100); Monocytes Absolute Auto 900 /uL (0-900); Monocytes Percent Auto 5.9 % (3-14); Neutrophils Absolute Auto 12500 /uL (1500-7000); Neutrophils Percent Auto 86.2 % (50-75); Platelet Count 101 X10^3/uL (150-400); Red Blood Cell Count 3.33 X10^6/uL (4.5-5.9); Red Cell Distribution Width 16.1 % (11.6-14.8); White Blood Cell Count 14.4 X10^3/uL (4.5-11.0)
[2021-03-01 06:03] LABS: BUN Creatinine Ratio 36.2 (6-22); Blood Urea Nitrogen 54 mg/dL (9-20); Calcium 8.3 mg/dL (8.4-10.2); Carbon Dioxide 23 mmol/L (22-32); Chloride 111 mmol/L (98-107); Estimated Glomerular Filt Rate 44.7 mL/min (>60); Glucose 87 mg/dL (80-110); HEMOLYSIS < 15 (0-50); Potassium 4.6 mmol/L (3.4-5.1); Sodium 135 mmol/L (137-145)
[2021-03-01 06:05] LABS: C-Reactive Protein Quant < 0.5 mg/dL (<1.0)
[2021-03-01 06:11] LABS: NT-proBNP (BNP-Adult 18+) 937 pg/mL (<450)
[2021-03-01 06:34] LABS: Creatine Kinase 31 U/L (55-170); Erythrocyte Sedimentation Rate 7 MM/HR (0-15)
[2021-03-01 06:47] LABS: Troponin I 0.046 ng/mL (0.01-0.034)
--- NOTE | 2021-03-01 07:37 | P.PN_ITS ---
Subjective Subjective Date Patient Seen: 03/01/21 Interval history: His acute kidney injury continues to improve. He was admitted here yesterday after an acute loss of consciousness while being transported to the long-term from [facility]. He says he is feeling much better and if it weren't for the hemoglobin dropping from 12.0 down to 10.2 and the platelets from 123 down to 101 he would likely be able to go to the long-term today to continue his rehab. There are no signs of dehydration or concerne about the lactate yesterday of 2.6. His troponin has dropped from 0.056 down to 0.046. The BNP has dropped from 1790 down to 937. The albumin is 2.8 and the lipase was 524. Despite those abnormal lab values he still looks like a potential long-term rehab transfer in the next 24 hours. Exam Vital Signs (past 8 hours): - 03/01/21 01:00 03/01/21 03:45 03/01/21 05:00 Temperature 98.5 F 97.4 F L Pulse Rate 67 64 Respiratory Rate 12 16 Blood Pressure 122/71 128/64 Pulse Oximetry 97 97 97 Oxygen Delivery Method Room Air Oxygen Flow Rate 0 Narrative Exam Narrative: He is alert, oriented x3, able to tell me in great detail about the event yesterday and where exactly it occurred during his transportation. His feet are slightly swollen but that looks chronic and they are wrapped. Heart is regular rate and rhythm without murmur Lungs are clear to auscultation bilaterally Objective Labs Result Diagrams: 03/01/21 05:40 03/01/21 05:40 Labs: Laboratory Results - last 24 hr 02/28/21 02/28/21 02/28/21 15:25 15:25 15:25 WBC 13.8 H RBC 3.95 L Hgb 12.0 L Hct 37.2 L MCV 94.3 MCH 30.3 MCHC 32.1 RDW 16.5 H Plt Count 123 L Neut % (Auto) 95.3 H Lymph % (Auto) 2.9 L [place] % (Auto) 1.8 L Eos % (Auto) 0.0 L Baso % (Auto) 0.0 Neut # (Auto) 57146 H Lymph # (Auto) 400 L [place] # (Auto) 300 Eos # (Auto) 0 Baso # (Auto) 0 ESR Sodium 139 Potassium 4.8 Chloride 111 H Carbon Dioxide 22 BUN 53 H Creatinine 1.57 H Estimated GFR 42.1 L BUN/Creatinine Ratio 33.8 H Glucose 108 Lactate 2.6 H Calcium 8.5 Magnesium 2.2 Total Bilirubin 0.7 AST 36 ALT 41 Alkaline Phosphatase 63 Total Creatine Kinase 41 L CK-MB (CK-2) TNP CK-MB (CK-2) Rel Index TNP Troponin I 0.062 H C-Reactive Protein NT-Pro-B Natriuret Pep 1790 H Total Protein 4.9 L Albumin 2.8 L Globulin 2.1 Albumin/Globulin Ratio 1.3 Lipase 524 H 02/28/21 03/01/21 03/01/21 20:20 05:40 05:40 WBC 14.4 H RBC 3.33 L Hgb 10.2 L Hct 30.9 L MCV 92.9 MCH 30.5 MCHC 32.9 RDW 16.1 H Plt Count 101 L Neut % (Auto) 86.2 H Lymph % (Auto) 7.1 L [place] % (Auto) 5.9 Eos % (Auto) 0.3 L Baso % (Auto) 0.5 Neut # (Auto) 33000 H Lymph # (Auto) 1000 L [place] # (Auto) 900 Eos # (Auto) 0 Baso # (Auto) 100 ESR Sodium Potassium Chloride Carbon Dioxide BUN Creatinine Estimated GFR BUN/Creatinine Ratio Glucose Lactate Calcium Magnesium Total Bilirubin AST ALT Alkaline Phosphatase Total Creatine Kinase CK-MB (CK-2) CK-MB (CK-2) Rel Index Troponin I 0.056 H C-Reactive Protein NT-Pro-B Natriuret Pep 937 H Total Protein Albumin Globulin Albumin/Globulin Ratio Lipase 03/01/21 03/01/21 03/01/21 05:40 05:40 05:40 WBC RBC Hgb Hct MCV MCH MCHC RDW Plt Count Neut % (Auto) Lymph % (Auto) [place] % (Auto) Eos % (Auto) Baso % (Auto) Neut # (Auto) Lymph # (Auto) [place] # (Auto) Eos # (Auto) Baso # (Auto) ESR 7 Sodium 135 L Potassium 4.6 Chloride 111 H Carbon Dioxide 23 BUN 54 H Creatinine 1.49 H Estimated GFR 44.7 L BUN/Creatinine Ratio 36.2 H Glucose 87 Lactate Calcium 8.3 L Magnesium Total Bilirubin AST ALT Alkaline Phosphatase Total Creatine Kinase CK-MB (CK-2) CK-MB (CK-2) Rel Index Troponin I C-Reactive Protein < 0.5 NT-Pro-B Natriuret Pep Total Protein Albumin Globulin Albumin/Globulin Ratio Lipase 03/01/21 03/01/21 05:40 05:40 WBC RBC Hgb Hct MCV MCH MCHC RDW Plt Count Neut % (Auto) Lymph % (Auto) [place] % (Auto) Eos % (Auto) Baso % (Auto) Neut # (Auto) Lymph # (Auto) [place] # (Auto) Eos # (Auto) Baso # (Auto) ESR Sodium Potassium Chloride Carbon Dioxide BUN Creatinine Estimated GFR BUN/Creatinine Ratio Glucose Lactate Calcium Magnesium Total Bilirubin AST ALT Alkaline Phosphatase Total Creatine Kinase 31 L CK-MB (CK-2) TNP CK-MB (CK-2) Rel Index TNP Troponin I 0.046 H C-Reactive Protein NT-Pro-B Natriuret Pep Cancelled Total Protein Albumin Globulin Albumin/Globulin Ratio Lipase PFSH Medical History (Updated 03/01/21 @ 02:26 by CARMEL Borges) Atrial fibrillation Bullous pemphigoid CHF (congestive heart failure) CKD (chronic kidney disease) History of Mohs micrographic surgery for skin cancer Hyperlipidemia Hypertension Pacemaker Surgical History (Updated 03/01/21 @ 02:26 by CARMEL Borges) History of permanent cardiac pacemaker placement History of surgery on wrist History of total hip arthroplasty Family History Father Pacemaker Brother Pacemaker Mother Alzheimer's dementia Brother Alzheimer's dementia Social History household members: spouse Smoking Status: Never smoker Assessment & Plan Assessment & Plan narrative: 1. Near syncopal episode-witnessed, acute, present on admission -unclear etiology possible to be atrial Fib or CHF exacerbation with BNP 1790, now down to 937 -continue telemetry, vital signs q.4 hours, intake and output monitored Q shift, weight measure daily, diet:Heart Healthy -Unable to get Stroke MR due to pacemaker in place. -likely to discharge to [facility] in [place] tomorrow 2. Atrial fibrillation, acute on chronic, -pacemaker in place -patient on Coumadin - in the setting of diastolic CHF with EF 60-65% -continue patient's Coumadin, amlodipine, atorvastatin, Lasix, lisinopril, met oprolol, potassium -Echo: 02/26/2021: Compared to the echo done on 06/15/2017 aortic stenosis has progressed from mild to moderate on this study EF 60-65% 3. Mild Anemia, acute, present on admission -As evidence by a hemoglobin 12 and hematocrit 37.2, RBC 3.95, RDW 16.5, platelets 123 -03/01 hemoglobin dropped to 10.2 and platelets dropped to 101. -Repeat on 03/02 for likely discharge to [facility] facility assuming they stabilize. 4. Leukocytosis, Mild, acute, present on admission As evidence by a WBC 13.8 /Neut#[id number] signs of gross infection of bilateral lower extremities, chest x-ray: no acute pathology. Patient may have chronically elevated wbc's due to chronic prednisone for Bullous Pemphigoid -elevated lactate of 2.6 yesterday without signs of dehydration or acute illness today. 5. Bullous Pemphigoid, acute on chronic, present on admission -continue wound care changes. -monitor for signs of infection/decreased perfusion -continue Lasix 6. Rheumatoid arthritis, acute on chronic, not present on admission -Continue patient's prednisone 7. KYAW, present on admission. Active -Creatinine continues to improve, down to 1.49 today. Disposition-[facility] in [place] on 03/02. Code status: DNR COVID PCR: Negative Surrogate decision maker: Spouse DVT/VTE prophylaxis: Medication contraindicated continue patient's Coumadin and SCDs applied Quality VTE Deep Vein Thrombosis/Pulmonary Embolism Present on Admission: No
[2021-03-01] MEDS: predniSONE 5 MG TABLET 10 MG PO (09:33)
[2021-03-01] MEDS: FUROSEMIDE 40 MG TABLET 20 MG PO (09:33)
[2021-03-01] MEDS: METOPROLOL IR 25 MG TABLET PO (09:34)
--- NOTE | 2021-03-01 10:00 | PC.NURSE ---
Pt reports medications not correct in chart, verified with his personal med list, home med list updated.
[2021-03-01] MEDS: MORPHINE IR 15 MG TABLET PO (11:15)
--- NOTE | 2021-03-01 11:23 | CM.DANOTE ---
Addendum entered by Kianna Quintanilla LPN 03/01/21 14:48: BOBBY Grajeda confirms that admission status is now confirmed: INPT. Original Note: Discharge Planning/Care Management DCP: continued: case received, discussed in Team Rounds and then met with pt. Introduced self and role. Pt is an 85 year old male who admitted last night to care of hospitalist team. of note: pt had been d/c'd from [facility] 02/28 to a snf: [facility] and was half way there via [facility] w/c van transport when he became unresponsive. [facility] quickly brought him to as this was the closest appropriate facility. Have now confirmed with Dr. Razo that he will observe pt for today and with a plan to d/c him tomorrow to continue on his snf bound journey. Have spoken with [facility] warehouser Edyta to update her. She stated that no one was available over the weekend in admissions or administration but that the facility was aware of the event that occurred. She suggested that a vm be left for admissions/Mechelle on her cell: [phone]. Have now done this and with plan for a return to the facility on Friday 03/02. Have spoken with [facility] weekend team. Marci: [phone]. She stated that she will need to send initial clinical information so that they can get him in the system. BOBBY Grajeda is doing this now. She also says that the snf auth already in progess will stand and that [facility] will just need a d/c summary sent to them tomorrow. Noted that [facility] had left her contact info on white board in pt's room: [phone]: called and left vm re the plan for return ot pt to [facility] tomorrow. DCP team to follow up on these details on Tuesday. P: continue on to [facility] tomorrow if pt remains stable and as per above details. Pt is aware of and agreeable to plan and has updated his Leticia via phone call this morning. Advanced directive, confirm from FAMILY Start: 02/28/21 21:59 Freq: Q24H Status: Active Protocol: Document 05/15/21 21:59 KA (Rec: 02/28/21 21:59 KA [id number]) Advance Directive, confirm on record Time 21:59 Person contacted Castro Hwang received No CM Discharge Assessment Start: 03/01/21 11:21 Freq: Status: Active Protocol: Document 03/01/21 11:22 ITV (Rec: 03/01/21 11:23 ITV [id number]) Discharge Planning Assessment Advance Directives? Yes Advance Directives on File No History Provided By Patient,Medical Record Prior Living Arrangements House Household Members spouse Independent with ADL's No Is patient alert and oriented? Yes
[2021-03-01 11:45] LABS: Appearance Urine UA CLEAR; Bilirubin Urine UA NEGATIVE (NEGATIVE); Color Urine UA YELLOW; Glucose Urine UA NEGATIVE (Negative); Ketones Urine UA NEGATIVE (NEGATIVE); Leukocyte Esterase Urine UA NEGATIVE (NEGATIVE); Nitrite Urine UA NEGATIVE (Negative); Occult Blood Urine UA NEGATIVE (Negative); Protein Urine UA NEGATIVE (Negative); Specific Gravity Urine UA 1.025 (1.000-1.035); Urobilinogen Urine UA 0.2 E.U./dL (0.2); pH Urine UA 5.5 (4.5-8.0)
--- NOTE | 2021-03-01 11:59 | PT-IP ANOTE ---
Attempted physical therapy but pt refused. He reports having too much leg pain at this time following dressing change. He agreed to try getting up to a chair later today if we use the mechanical lift. He reports feeling too weak to stand. Placed lift sling and waffle seat cushion in his room. Will try again later today.
[2021-03-01 12:06] LABS: Bacteria Urine Few (2-10); Culture Indicated Urine Cult Not Indicated; Hyaline Casts Urine 0-1/LPF; RBC Urine 1-5/HPF (0-5/HPF); Squamous Epithelial Cell Urine 1-5 /HPF (0-5/HPF); WBC Urine 1-5/HPF (0-5/HPF)
--- NOTE | 2021-03-01 16:25 | PT.IIE ---
Surgical History (Last Updated 03/01/21 @ 02:26 by ABBI BorgesDILMA) History of permanent cardiac pacemaker placement History of surgery on wrist History of total hip arthroplasty Medical History (Last Updated 03/01/21 @ 02:26 by CARMEL Borges) Atrial fibrillation Bullous pemphigoid CHF (congestive heart failure) CKD (chronic kidney disease) History of Mohs micrographic surgery for skin cancer Hyperlipidemia Hypertension Pacemaker Physical Therapy Inpatient Evaluation/Re-Eval M1 PT/OT-IP Prior Functional Status Start: 03/01/21 08:19 Freq: NEEDED Status: Active Protocol: Document 03/01/21 16:25 DLM (Rec: 03/01/21 17:26 DL [id number]) Medical Review Prior Functional Status Medical History Reviewed Yes Diet/Fluid Consistency Regular Communication WFL Mobility and Gait ambulated with fWW, he was recently at [facility] and was very weak, only able to get up to chair once than used mechanical lift for transfers due to weakness Activities of Daily Living and IADL's assisted by his Social History Household Members spouse Living Arrangements House M2 PT-IP Current Condition Start: 03/01/21 08:19 Freq: NEEDED Status: Active Protocol: Document 03/01/21 16:25 DLM (Rec: 03/01/21 17:26 DL [id number]) Physical Therapy Current Condition Current Condition Evaluation Date 03/01/21 Treatment Diagnosis syncope, impaired mobility/ gait Onset Date 02/28/21 Precautions Other Precautions wound issues on LE's and buttocks M3 PT-IP Subjective Start: 03/01/21 08:19 Freq: NEEDED Status: Active Protocol: Document 03/01/21 16:25 DLM (Rec: 03/01/21 17:26 [facility] [id number]) Subjective Physical Therapy Visit Type Type Initial Evaluation Visit Start Time 16:00 Visit Stop Time 16:25 Total Visit Minutes 25 Number of SANITARY AIDE Visits 0 Physical Therapy Visit Comments Patient Comments Pt reluctantly agreed to get up to chair if we use the mechanical lift, after up in the chair he reports he was glad he got up Patient Goals go to SNF rehab at discharge Therapy Pain Assessment Pain When Pain Assessed During Mobility Pain Present Pain Present Pain Reported Location Bilateral Lower Leg Intensity 5 Scale Used Numeric (0 - 10) Description Aching Pain Behaviors Guarding Pain Management Techniques Elevation M4 PT-IP Mobility and Gait Start: 03/01/21 08:19 Freq: NEEDED Status: Active Protocol: Document 03/01/21 16:25 DLM (Rec: 03/01/21 17:26 [facility] [id number]) PT-Bed Mobility Assessment Rolling Type of Rolling Bilateral Level of Assist Moderate Assistance,Maximal Assistance,1 Person Assistance PT-Transfer Assessment Transfers Transfer Destination Chair Transfer Technique Mechanical Lift Transfer Ability Level of Assist 2 Person Assistance Comments Mobility Comments pt declined mobility except to get up to recliner with the lift, pt up to recliner with feet elevated and visiting with his Gait Assessment Comments Gait Comments pt declined to attempt PT-Balance Assessment Comments Other Balance Tests/Deviations/Treatment unable to determine balance, : pt unwilling to attempt M5 PT-IP Objective Assessments Start: 03/01/21 08:19 Freq: NEEDED Status: Active Protocol: Document 03/01/21 16:25 DLM (Rec: 03/01/21 17:26 [facility] [id number]) Orientation Orientation/Cognition Level of Alertness Alert Orientation Name,Age,Birthday,Month,Date, Year,Day of Week,Place, Situation Language Function Ability No Deficits Noted Safety Awareness Understands Safety Issues Memory Description No Deficits Noted Gross Range of Motion Upper Extremity ROM Assessment Within Functional Limits Lower Extremity ROM Assessment Bilaterally Impaired Impairments limited by pain and wounds on LE's Strength Upper Extremity Strength Assessment Bilaterally Impaired Lower Extremity Strength Assessment Bilaterally Impaired Comments Strength Comments generalized weakness throughout, uses UE's for light ADL's but needs assist to move LE's in bed, difficulty touching his LE's due to c/o pain and wounds Coordination Assessment Gross Coordination Gross Coordination WNL Sensation Assessment Comments Sensation Comments LE's are impaired with wounds and pain Muscle Tone Muscle Tone WNL Yes M6 PT-IP Treatment Start: 03/01/21 08:19 Freq: NEEDED Status: Active Protocol: Document 03/01/21 16:25 DLM (Rec: 03/01/21 17:26 [facility] [id number]) Physical Therapy Treatment Education Education Provided Safety M7 PT-IP Assessment and Plan Start: 03/01/21 08:19 Freq: NEEDED Status: Active Protocol: Document 03/01/21 16:25 DLM (Rec: 03/01/21 17:26 [facility] [id number]) PT Summary Assessment and Plan Potential Rehabilitation Potential Fair Status of Condition at Evaluation Evolving Summary Impairments Pain,Strength,Balance,Bed Mobility,Transfers,Gait, Activity Tolerance Assessment Summary Castro is reluctant to participate in physical therapy today. He only agreed to get out of bed using the mechanical lift to the recliner. He wants to go to SNF rehab at discharge as was the plan when he discharged from [facility] . He is very focused on his wounds today. No dizziness nor light-headedness getting up to the recliner. He does not want to sit with his feet down for any length of time due to his LE edema and wounds . Recommend he discharge to SNF by BLS to manage his medical issues and his poor sitting tolerance. Goals Bed Mobility Goal Moderate Assistance Transfer Goal Moderate Assistance,Maximal Assistance,Front Wheeled Walker Other Goals Tolerate sitting upright for 2 hours at a time Days to Meet Goals 4 Frequency of Treatment Frequency Of Treatment Once a Day Treatment Plan Physical Therapy Treatment Plan Bed Mobility Training,Transfer Training,Gait Training, Therapeutic Exercise,Balance Retraining,Discharge Planning, Neuromuscular Re-ed Recommendations To Nursing Amount of Assist Needed 2 Person Assist,Mechanical Lift Discharge Recommendations PT Discharge Recommendations SNF Rehab Transportation Needs at Discharge Stretcher/Ambulance
[2021-03-01] MEDS: WARFARIN 5 MG TABLET 2.5 MG PO (16:43)
[2021-03-01] MEDS: POTASSIUM CHLORIDE 20 MEQ TAB PO (16:44)
[2021-03-01] MEDS: OXYCODONE IR 5 MG TABLET PO (19:34)
[2021-03-01] MEDS: ACETAMINOPHEN 325 MG TABLET 650 MG PO (19:35)
--- NOTE | 2021-03-01 20:20 | PC.NURSE ---
Addendum entered by Silvia Read R.N. 03/01/21 23:24: Lisinopril dc'd per provider. pt states he no longer takes the med Original Note: Rt. leg dressing saturated. dressing was changed, applied meta honey. oxycodone and tylenol for pain med.
[2021-03-01] MEDS: ATORVASTATIN 20 MG TABLET 40 MG PO (21:21)
[2021-03-01] MEDS: AMLODIPINE 5 MG TABLET 2.5 MG PO (21:21)
[2021-03-02] VITALS (11 sets, daily range): BP systolic 94–143; BP diastolic 48–83; PULSE 71–88; RESP 14–18; TEMP 35.9–36.7; O2SAT 95–100
[2021-03-02 05:58] LABS: Add Manual Diff / Slide Review NO; Basophils Absolute Auto 0 /uL (0-100); Basophils Percent Auto 0.3 % (0-2); Eosinophils Absolute Auto 200 /uL (0-450); Eosinophils Percent Auto 1.8 % (2-4); Hematocrit 34.3 % (41-53); Hemoglobin 11.1 g/dL (13.5-17.5); Lymphocytes Absolute Auto 1500 /uL (1100-4500); Lymphocytes Percent Auto 11.2 % (25-40); Mean Corpuscular HGB Conc 32.3 % (30-36); Mean Corpuscular Hemoglobin 30.1 PG (26-34); Mean Corpuscular Volume 93.2 fL (80-100); Monocytes Absolute Auto 800 /uL (0-900); Monocytes Percent Auto 6.1 % (3-14); Neutrophils Absolute Auto 10700 /uL (1500-7000); Neutrophils Percent Auto 80.6 % (50-75); Platelet Count 106 X10^3/uL (150-400); Red Blood Cell Count 3.68 X10^6/uL (4.5-5.9); Red Cell Distribution Width 16.7 % (11.6-14.8); White Blood Cell Count 13.3 X10^3/uL (4.5-11.0)
[2021-03-02 06:10] LABS: BUN Creatinine Ratio 38.7 (6-22); Blood Urea Nitrogen 53 mg/dL (9-20); Calcium 8.3 mg/dL (8.4-10.2); Carbon Dioxide 23 mmol/L (22-32); Chloride 112 mmol/L (98-107); Estimated Glomerular Filt Rate 49.3 mL/min (>60); Glucose 85 mg/dL (80-110); HEMOLYSIS < 15 (0-50); Potassium 4.5 mmol/L (3.4-5.1); Sodium 137 mmol/L (137-145)
--- NOTE | 2021-03-02 06:47 | PC.NURSE ---
Patient states his has his advanced directives in her purse, but has not been signed. Patient also states he desires DNR status, but his eldest daughter wants him to be a full code. States will hopefully bring paperwork in today.
[2021-03-02] MEDS: FUROSEMIDE 40 MG TABLET 20 MG PO (08:10)
[2021-03-02] MEDS: SODIUM CHLORIDE 0.9% FLUSH 10 ML IV ×2 (08:11→20:20)
[2021-03-02] MEDS: METOPROLOL IR 25 MG TABLET PO (08:11)
[2021-03-02] MEDS: predniSONE 5 MG TABLET 10 MG PO (08:11)
--- NOTE | 2021-03-02 08:32 | P.DS_ITS ---
History of Present Illness History of Present Illness Date Patient Seen: 03/02/21 Time Patient Seen: 08:33 Chief complaint: Afib Narrative: Per Jacqueline Wang, MARKET RISK SPECIALIST-: Patient is a 85-year-old male Castro Ayala who presents via EMS for evaluation of an unresponsive episode just prior to arrival. Patient has an extensive recent medical history that started with bilateral lower extremity cellulitis. In early January the patient was in inpatient of [facility] for 6 days then returned home with home health and wound care, a week later the patient developed confusion and was unable to get off the commode called [facility] which then transported him to [facility] ED again and was found to have acute renal injury with creatinine elevated to 4.2. He was transferred to [facility] for further evaluation of acute on chronic renal failure, hyperkalemia, leukocytosis, lactic acidosis, hypertension, distal it heart failure, atrial fibrillation, sick sinus syndrome, asthma, bulbous pemphigoid, chronic lymph edema, hyperlipidemia, and arthritis. He had just been discharged earlier today and was in a cab heading to a SNF in [place] where he would be hospitalized for 6 days and then subsequently discharged home. In the cab the patient mentioned to the hearse driver that he felt some pain in his neck and then became unresponsive. He was transported here to [facility] by which time he had returned to his baseline, with no ongoing symptoms. Patient denies any chest pain, changes in vision, weakness, difficulty with swallowing, difficulty with speech, incontinence of urine or bowel, shortness of breath, fever, nausea, vomiting, diarrhea, chills, or body aches. He states that his neck has been bothering him for much of the time in the hospital because they had him positioned awkwardly and also that he was sleeping poorly. Patient has a history of atrial fibrillation, pacemaker (on Coumadin), sick sinus syndrome, pacemaker placement, hypertension, hyperlipidemia, asthma, c hronic lymphedema, bulbous Pemphigoid, chronic kidney disease, and diastolic CHF with preserved EF. Patient's vitals upon admit temp 97.6?, BP 99/64, HR 82, R 23, O2 saturation 98% on room air. Patient's labs WBC 13.8, HGB 12, HCT 37.2, Cl 111, BUN 53, creatinine 1.57, EGFR 42.1, BUN creatinine ratio 33.8 RBC 3.95, RDW 16.5, platelets 123, lactate 2.6, lipase 524, troponin 0.062, proBNP 1790, total protein 4.9, albumin 2.8. Chest x-ray: Shows no acute cardiopulmonary abnormalities. Discharge Providers Provider Date of admission: 02/28/21 20:17 Discharge Date: 03/02/21 Primary care physician: Benjamin Rodriguez DO Consults: 02/28/21 19:56 Consult to Occupational Therapy Evaluate & Treat Comment: Near syncopal episode Physician Instructions: Evaluate and treat Consult to Physical Therapy Evaluate & Treat Comment: Near syncopal episode Physician Instructions: Evaluate and Treat Discharge provider: Wojciech Galvez DO Summary Hospital Course Discharge Diagnosis: 1. Near syncopal episode-witnessed, acute, present on admission 2. Chronic atrial fibrillation with rapid ventricular response, 3. Mild Anemia, acute, present on admission 4. Leukocytosis, Mild, likely chronic, present on admission 5. Bullous Pemphigoid, present on admission 6. Rheumatoid arthritis, acute on chronic, not present on admission 7. KYAW, present on admission, improved Hospital Course: This is an 85-year-old male admitted to the hospital after a near syncopal episode after recent discharge to the hospital for acute on chronic renal failure and cellulitis. On the way to a nursing facility in a cab the patient had a witnessed presyncopal episode and was taken to the emergency room here. His symptoms had resolved by the time of admission and there was no overt etiology found. Differentials include syncope from carotid sinus syndrome, orthostatic hypotension, or possibly atrial fibrillation. He had a recent echocardiogram on February 26 which showed moderate aortic stenosis and an EF of 60-65%. During his hospital stay the morning after admission his he moglobin dropped to 10.2 and platelets declined slightly to 101. They were repeated the following day with improvement in his hemoglobin to 11 and platelet count was 106. The patient's creatinine continues to decline and is now improved to 1.37 down from over 4 during his previous admission at outside hospital. He did develop atrial fibrillation with rapid ventricular response on 25 mg of metoprolol, this improved quite dramatically with increase in his beta- agustin to 75 mg twice a day without a drop in blood pressure. He will continue on 75 mg twice a day (It is unclear as to what he should have been taking after discharge from [facility] as discharge paperwork medication list states 25 mg BID however in the discharge summary this is written as 75 mg BID). He is stable to go to [facility] in [place] today. Exam Vital Signs (past 8 hours): - 03/02/21 00:46 03/02/21 03:00 Temperature 97.0 F L 96.9 F L Pulse Rate 71 83 Respiratory Rate 16 14 Blood Pressure 143/83 H 124/64 Pulse Oximetry 100 100 Oxygen Delivery Method Room Air Oxygen Flow Rate 0 Narrative Exam Narrative: General: Patient is a well-developed, well-nourished in no distress at this time. HEENT: Normocephalic, atraumatic, extraocular muscles intact, oral pharynx is clear and mucous membranes are moist. Neck is supple and symmetric, trachea is midline, no adenopathy, no thyroid enlargement, nontender, no masses palpated. Negative for JVD Lungs: Auscultation of all lung kirby are clear without adventitious sounds, wheezes, rhonchi, or rales. Cardio: Irregularly irregular with the normal rate, no murmurs, rubs, or gallops. Abdomen: Soft, nontender, and nondistended Musculoskeletal: Muscle strength and tone are equal within normal limits, no deformity, crepitus, effusions, cyanosis, or clubbing present. Full range of motion intact radial and pedal pulses are normal. Skin: Significant bruising over bilateral arms elbows with dressings in place due to frequent bleeding, bilateral lower extremities with edema, ulcerations to the top of the right foot and to the lower leg area extremely sensitive to touch. Neuro: Alert and orientated x3, strength is +5/5 in all extremities, sensation to touch intact, no gross deficits noted of cranial nerves. Psych: Patient has a well-kept appearance, appropriate affect, mental status attitude thought context and judgment are appropriate for age. Objective Labs Result Diagrams: 03/02/21 05:45 03/02/21 05:45 Labs: Laboratory Results - last 24 hr 03/01/21 03/02/21 03/02/21 11:34 05:45 05:45 WBC 13.3 H RBC 3.68 L Hgb 11.1 L Hct 34.3 L MCV 93.2 MCH 30.1 MCHC 32.3 RDW 16.7 H Plt Count 106 L Neut % (Auto) 80.6 H Lymph % (Auto) 11.2 L [place] % (Auto) 6.1 Eos % (Auto) 1.8 L Baso % (Auto) 0.3 Neut # (Auto) 71548 H Lymph # (Auto) 1500 [place] # (Auto) 800 Eos # (Auto) 200 Baso # (Auto) 0 Sodium 137 Potassium 4.5 Chloride 112 H Carbon Dioxide 23 BUN 53 H Creatinine 1.37 H Estimated GFR 49.3 L BUN/Creatinine Ratio 38.7 H Glucose 85 Calcium 8.3 L Urine Color Yellow Urine Appearance Clear Urine pH 5.5 Ur Specific [place] 1.025 Urine Protein Negative Urine Glucose (UA) Negative Urine Ketones Negative Urine Occult Blood Negative Urine Nitrate Negative Urine Bilirubin Negative Urine Urobilinogen 0.2 Ur Leukocyte Esterase Negative Urine RBC 1-5/hpf Urine WBC 1-5/hpf Ur Squamous Epith Cells 1-5 /hpf Urine Bacteria Few (2-10) H Hyaline Casts 0-1/lpf Ur Culture Indicated? Cult not indicated PFS Medical History (Updated 03/01/21 @ 02:26 by CARMEL Borges) Atrial fibrillation Bullous pemphigoid CHF (congestive heart failure) CKD (chronic kidney disease) History of Mohs micrographic surgery for skin cancer Hyperlipidemia Hypertension Pacemaker Surgical History (Updated 03/01/21 @ 02:26 by CARMEL Borges) History of permanent cardiac pacemaker placement History of surgery on wrist History of total hip arthroplasty Family History Father Pacemaker Brother Pacemaker Mother Alzheimer's dementia Brother Alzheimer's dementia Social History household members: spouse Smoking Status: Never smoker Discharge Plan Discharge Plan Patient Disposition: SNF Other facility: [facility] Provider Discharge Comment: This is an 85-year-old male admitted to the hospital after a near syncopal episode after recent discharge to the hospital for acute on chronic renal failure and cellulitis. On the way to a nursing facility in a cab the patient had a witnessed presyncopal episode and was taken to the emergency room here. His symptoms had resolved by the time of admission and there was no overt etiology found. Differentials include syncope from carotid sinus syndrome, orthostatic hypotension, or possibly atrial fibrillation. He had a recent echocardiogram on February 26 which showed moderate aortic stenosis and an EF of 60-65%. During his hospital stay the morning after admission his hemoglobin dropped to 10.2 and platelets declined slightly to 101. They were repeated the following day with improvement in his hemoglobin to 11 and platelet count was 106. No medication changes were adjusted. The patient's creatinine continues to decline and is now improved to 1.37. He is stable to go to [facility] in [place] today. Medications upon discharge here are now updated to reflect list upon discharge from [facility]. Discharge orders & Medications Prescriptions: New amlodipine [Norvasc] 5 mg Tablet 2.5 mg PO BEDTIME 3 Days RF: 0 allopurinol 100 mg Tablet 100 mg PO DAILY 30 Days Qty: 30 RF: 0 metoprolol tartrate 25 mg Tablet 75 mg PO BID 30 Days Qty: 180 RF: 0 Continued atorvastatin [Lipitor] 40 MG tablet 40 mg PO BEDTIME Qty: 0 RF: 0 warfarin [Coumadin] 2.5 MG tablet 5 mg PO SEE INSTRUCTIONS Qty: 0 RF: 0 prednisone 5 MG tablet 10 mg PO DAILY Qty: 0 RF: 0 doxycycline hyclate 100 mg Tablet 100 mg PO BID RF: 0 calcium carbonate-vitamin D3 500 mg(1,250mg) -125 unit Tablet 1 tab PO BID RF: 0 famotidine 20 mg Tablet 20 mg PO BID RF: 0 cyanocobalamin (vitamin B-12) 100 mcg tablet 100 mcg PO DAILY RF: 0 lisinopril 20 mg Tablet 20 mg PO DAILY RF: 0 furosemide 20 mg tablet 20 mg PO BID RF: 0 morphine 15 MG tablet 1 tab PO BIDP PRN (Reason: pain) 7 Days Qty: 14 RF: 0 oxycodone 5 mg tablet 5 mg PO Q4H PRN (Reason: Moderate Pain (Scale Score 5-6)) 7 Days Qty: 15 RF: 0 potassium chloride 20 mEq tablet,ER particles/crystals 20 meq PO DAILY RF: 0 Discontinued metoprolol tartrate 25 MG tablet 25 mg PO BID Qty: 0 RF: 0 furosemide 40 MG tablet 40 mg OR DAILY Qty: 0 RF: 0 Follow up/Referrals: Benjamin Rodriguez DO [Primary Care Provider] - Diet/Activity/Treatments Diet: Diet as Tolerated Diet comment: Heart healthy Activity: As tolerated Visit Report/Discharge Packet Instructions: DI for Syncope in Adults (Fainting) Discharge Data Primary Care Provider: Benjamin Rodriguez VTE Deep Vein Thrombosis/Pulmonary Embolism Present on Admission: No
[2021-03-02] MEDS: METOPROLOL IR 50 MG TABLET PO (09:08)
--- NOTE | 2021-03-02 09:08 | PC.NURSE ---
Notified from FINISHED CLOTH CHECKER patients HR was up to [address] Galvez aware and orders received.
--- NOTE | 2021-03-02 10:38 | CM.DPC ---
DCP Cont: Left a message with [facility] clinical case manager, Cris Wilcox, and Nohemy Zarate, since patient is to be discharged today. Nohemy did call back and confirm that Cris Wilcox is the case manger. Left Cris another voice mail indicating that patient is discharging today. Mechelle from [facility] also called and indicated that she needs a new authorization number, and is also attempting to get in touch with [facility]. Do have signed med sheets. Mechelle stated that she needs another PASSR. Faxed DC summary electronically to [facility]. Faxed over signed med sheets, and PASSR as well. Awaiting authorization so time of case picker can be arranged. Updated nurse, Chapis. P: Patient is discharging to [facility] today pending [facility] authorization. Jodie Shirley RN/Buckle Strap Drum Operator
[2021-03-02] MEDS: MORPHINE IR 15 MG TABLET PO (10:45)
[2021-03-02 11:25] LABS: COVID19 -Nasal RAPID Negative (Negative)
--- NOTE | 2021-03-02 11:25 | CM.DPC ---
Addendum entered by Jodie Shirley R.N. 03/02/21 14:34: Left [employer] a message also regarding needing transportation for patient to [facility]. Addendum entered by Jodie Shirley R.N. 03/02/21 14:26: Patient was very upset, stated that [facility] stated that he was approved yesterday. Explained to patient that authorization would need to start over, and that this case packer and sealer has been working on getting a new authorization for patient. Chin Mccarthy Reference Librarian had just called patient's room when this case packer and sealer was in the room. He did not understand the whole conversation, this case packer and sealer spoke to her in the room. She was stating to the patient that he is approved for [facility]. She gave auth number of: [id number]. Currently awaiting to hear back from Mechelle at [facility]. May need to use [employer]. Addendum entered by Jodie Shirley R.N. 03/02/21 13:13: Faxed [facility] today's O.T. note Addendum entered by Jodie Shirley R.N. 03/02/21 11:36: Faxing over P.T. note, O.T. notes are pending. Original Note: DCP Cont: Spoke to Chin Mccarthy case packer and sealer. Stated, She has 7 authorizations to review, and this patient did not even have an ED diagnosis. Let her know that patient needs DC orders for today. She stated, you are going to start over, and send all new clinicals, including P.T/O.T. notes. Stated, you guys keep doing this to me, wanting last minute authorizations, and can't make any promises for today. Let her know that this case packer and sealer will have Cyndee, catastrophe claims supervisor give her a call regarding her grievances. Updated Cyndee, she is aware and will call her. It is unclear if we will get authorization for today. P: DCP to continue to follow and will work on discharge and will follow up with Cyndee, catastrophe claims supervisor. Jodie Shirley RN/Reference Librarian
--- NOTE | 2021-03-02 12:40 | OT.IP.EVAL ---
Current Diagnoses Syncope and collapse (02/28/21) Past Medical History (Last Updated 03/01/21 @ 02:26 by CARMEL Borges) Atrial fibrillation Bullous pemphigoid CHF (congestive heart failure) CKD (chronic kidney disease) History of Mohs micrographic surgery for skin cancer Hyperlipidemia Hypertension Pacemaker Surgical History (Last Updated 03/01/21 @ 02:26 by CARMEL Borges) History of permanent cardiac pacemaker placement History of surgery on wrist History of total hip arthroplasty Occupational Therapy Inpatient Evaluation/Re-Eval M1 PT/OT-IP Prior Functional Status Start: 03/01/21 08:19 Freq: NEEDED Status: Active Protocol: Document 03/02/21 12:27 [facility] (Rec: 03/02/21 13:06 [facility] [id number]) Medical Review Prior Functional Status Medical History Reviewed Yes Diet/Fluid Consistency Regular Communication WFL Mobility and Gait ambulated with fWW, he was recently at [facility] and was very weak, only able to get up to chair once than used mechanical lift for transfers due to weakness Pt states prior to all his hospitalizations able to use fww to walk 10ft only at a time to get to the bathroom. Activities of Daily Living and IADL's assisted by his . Pt states his would assist him up to 75% for dressing, toileting, and bathing needs. Social History Household Members spouse Living Arrangements House Number of Floors (Floors) 3 or More Floors Number of Stairs To Enter/Railing? Pt does not access the basement and use of [place] lift to get to the bedroom level. Pt has Yasmeen powerchair on the main level. Pt has a ramp to enter the home. Home Environment High Toilet,Walk in Shower Home Equipment Front Wheel Walker,Power Wheelchair/Scooter,Shower Seat without Backrest,Hand Held Shower,Dielectric Machine Operator Additional Social History Comment Pt states his is looking into getting a higher enlongated toilet and to attach a bidet for pt to help increased his independence with toileting needs. Pt states also after doing skilled rehab, they are looking to get more assist for pt at home. M2 OT-IP Current Condition Start: 03/02/21 12:42 Freq: Status: Active Protocol: Document 03/02/21 12:27 [facility] (Rec: 03/02/21 13:06 [facility] [id number]) Occupational Therapy Current Condition Current Condition Evaluation Date 03/02/21 Treatment Diagnosis Syncope Diagnosis Onset Date 02/28/21 M3 OT- IP Subjective and Pain Start: 03/02/21 12:42 Freq: Status: Active Protocol: Document 03/02/21 12:27 [facility] (Rec: 03/02/21 13:06 [facility] [id number]) OT- Subjective Occupational Therapy Visit Type Type Initial Evaluation Visit Start Time 12:27 Visit Stop Time 12:40 Total Visit Minutes 13 Occupational Therapy Visit Comments Patient Comments Pt willing to get out of bed for OT eval. Patient/Caregiver Goals TO go to skilled rehab and get stronger before going. To be able to walk with the FWW again to and from the bathroom . OT Pain Assessment Pain When Pain Assessed At Rest Pain Present Pain Present Denied Pain M4 OT- IP ADL's Start: 03/02/21 12:42 Freq: Status: Active Protocol: Document 03/02/21 12:27 [facility] (Rec: 03/02/21 13:06 [facility] [id number]) OT UYF-[id number]-[id number] General Evaluation Self-Feeding Ability Standby Assistance Areas Needing Assistance Opening Containers Comments OT Self-Feeding Comments set-up assist. OT ADL-Grooming General Evaluation Areas Needing Assistance Retrieving/Set-up of Grooming Items OT ADL-Dressing General Eval Lower Body Dressing Ability Total Assistance Comments OT Dressing Comments Pt needing total assist for all LB dressing needs at this time. Pt states has a L AFO and orthotic shoes. OT ADL-Toileting Comments OT Toileting Comments Pt did not have to use the bathroom at the time. OT ADL-Bathing Comments OT Bathing Comments Sponge bath would be more appropriate at this time. M5 OT- IP IADL's Start: 03/02/21 12:42 Freq: Status: Active Protocol: Document 03/02/21 12:27 [facility] (Rec: 03/02/21 13:06 [facility] [id number]) OT-Instrumental Activities of Daily Living Home Safety Awareness Awareness of Need for Assistance at Home Good Awareness Medication Management Medication Management Caregiver Administers Money Management Money Management Comments Pt states both he and his pay the bills. Meal Preparation Meal Preparation Caregiver Provides Assist Paper Spooler Paper Spooler Caregiver Provides Assist M6 OT- IP Functional Cognition Start: 03/02/21 12:42 Freq: Status: Active Protocol: Document 03/02/21 12:27 [facility] (Rec: 03/02/21 13:06 [facility] [id number]) Cognitive Factors Limiting Selfcare Function Cognitive Ability Level of Alertness Alert Patient Orientation Name,Place,Situation Attention Span Ability Capable of Focused Attention, Capable of Sustained Attention Ability to Follow Commands Able to Follow One Step Commands Safety Awareness No Deficits Noted Problem Solving Ability No deficits Noted Cognitive Comments Cognitive Assessment Comments Pt able to state his wants and needs and feels that he is much clearer today for his thinking. OT- Vision and Hearing OT- Hearing Assessment OT- Hearing Assessment WFL OT- Vision Assessment Visual Acuity Glasses For Reading M7 OT- IP Mobility and Balance Start: 03/02/21 12:42 Freq: Status: Active Protocol: Document 03/02/21 12:27 [facility] (Rec: 03/02/21 13:06 [facility] [id number]) OT- Bed Mobility Assessment Supine to Sit Supine to Sit Assist Maximum Assistance,1 Person Assistance Sit to Supine Sit to Supine Assist Maximum Assistance,1 Person Assistance OT-Transfer Assessment Comments Mobility Comments Pt only able to get to sitting at this time at the edge of the bed. OT- Balance Assessment Sitting Balance and Reactions Static Sitting Balance Ability Poor M8 OT- IP Objective Assessments Start: 03/02/21 12:42 Freq: Status: Active Protocol: Document 03/02/21 12:27 [facility] (Rec: 03/02/21 13:06 [facility] [id number]) OT Gross Range of Motion Upper Extremity Range of Motion Assessment Within Functional Limits OT Strength Comments Strength Comments BUE 4/5 to 4-/5 from proximal to distal. OT- Coordination Assessment Comments Coordination Comments Pt has arthritic changes in his hands. M9 OT- IP Assessment and Plan Start: 03/02/21 12:42 Freq: Status: Active Protocol: Document 03/02/21 12:27 [facility] (Rec: 03/02/21 13:06 [facility] [id number]) OT Summary Assessment and Plan Potential Rehabilitation Potential Good Analytic Complexity at Evaluation Moderate Summary OT Impairments Pain,Strength,Balance, Functional Mobility,Grooming, Dressing,Toileting,Bathing, Toilet Transfers,Shower Transfers,Activity Tolerance Progress Towards Goals Slow Progress due to Pain,Slow Progress due to Medical Issues,Slow Progress due to Activity Tolerance Assessment Summary Pt MOD complexity and here due to syncopal episode while heading to [facility] in [place]. Pt needing extensive MAX A for bed mobility needs and not able to stand at this time. Pt is motivated to getting, stronger and hopefully back to his baseline level. Currently pt able to do grooming and eating needs after set-up, otherwsie needing extensive assist for ADl needs. Goals Grooming Goal Standby Assistance Dressing Goal Moderate Assistance Toileting Goal Moderate Assistance Bathing Goal Moderate Assistance Toilet Transfer Goal Independent Shower Transfer Goal Contact Guard Assistance Days to Meet Goals 20 Frequency of Treatment Frequency Of Treatment Once a Day Treatment Plan OT Treatment Plan ADL Training,Functional Mobility,Patient/Family Education,Discharge Planning Other Treatment Recommendations and Next Standing with MAX AX 2-3 to Treatment Focus FWW. Discharge Recommendations OT Discharge Recommendations SNF Rehab Transportation Needs at Discharge Stretcher/Ambulance
--- NOTE | 2021-03-02 15:57 | CM.DPC ---
DCP Cont: After authorization was received, Mechelle at [facility] was awaiting single case agreement letter from [facility]. Mechelle called back approximately an hour later and explained that she did receive the letter. Called [facility] back, and they stated that they had no further openings for leaf size picker today. Spoke to patient, and mentioned the possibility of [facility]. Patient indicated, he would be willing to pay for the fee. Called [facility] and attempted to set up transport, but they were unable to pick him up until 1700. Mechelle asked her clinic administrator, but was too late. P: Left a message with Cris [facility] renal case manager that patient is not able to discharge today secondary to late leaf size picker and facility not being able to accept at the late time. Set up for [facility] leaf size picker with Kaelyn, she will arrive at patient's room at 10:00. Jodie Shirley RN/Fund Accountant
--- NOTE | 2021-03-02 16:59 | PT-IP ANOTE ---
LOT ASSOCIATE attempted to see pt in AM and PT attempted at 1620. Pt refused both times. Will follow up morning of 03/03/21.
[2021-03-02] MEDS: WARFARIN 5 MG TABLET 2.5 MG PO (17:55)
[2021-03-02] MEDS: POTASSIUM CHLORIDE 20 MEQ TAB PO (17:55)
[2021-03-02] MEDS: ATORVASTATIN 20 MG TABLET 40 MG PO (20:12)
[2021-03-02] MEDS: METOPROLOL IR 25 MG TABLET 75 MG PO (20:12)
[2021-03-02] MEDS: AMLODIPINE 5 MG TABLET 2.5 MG PO (20:12)
[2021-03-03 00:30] VITALS: O2SAT 100
[2021-03-03 05:23] VITALS: BP 113/57; PULSE 85; RESP 17; TEMP 36.4; O2SAT 100
[2021-03-03 06:00] VITALS: O2SAT 100
[2021-03-03 06:28] LABS: BUN Creatinine Ratio 40.5 (6-22); Blood Urea Nitrogen 60 mg/dL (9-20); Calcium 8.1 mg/dL (8.4-10.2); Carbon Dioxide 24 mmol/L (22-32); Chloride 111 mmol/L (98-107); Estimated Glomerular Filt Rate 45.1 mL/min (>60); Glucose 92 mg/dL (80-110); HEMOLYSIS < 15 (0-50); Potassium 4.4 mmol/L (3.4-5.1); Sodium 138 mmol/L (137-145)
[2021-03-03] MEDS: SODIUM CHLORIDE 0.9% FLUSH 10 ML IV ×2 (06:28→08:08)
[2021-03-03] MEDS: OXYCODONE IR 5 MG TABLET PO (06:37)
[2021-03-03 07:38] VITALS: O2SAT 96
--- NOTE | 2021-03-03 07:55 | CM.DPC ---
Addendum entered by Jodie Shirley R.N. 03/03/21 10:46: Cris Wilcox called from [facility] to confirm that patient is discharging today, and he is authorized. [facility] showed up at 10:00 to chicken picker patient. Called Mechelle at [facility] and updated her that patient is coming via [facility], she is aware. Original Note: DCP Cont: Patient is discharging to [facility] today. Kaelyn from [facility] is supposed to chicken picker patient. Nurse, Nini, is aware. Electronically faxed over DC Summary from yesterday, and sent over COVID results from yesterday as well. P: Patient is discharging to [facility] today with [facility]. Updated patient on this yesterday, and updated [facility] case managers in a message yesterday. Authorization was received later in the day yesterday for long-term. Jodie Shirley RN/Maintenance Worker
[2021-03-03] MEDS: METOPROLOL IR 25 MG TABLET 75 MG PO (08:07)
[2021-03-03] MEDS: predniSONE 5 MG TABLET 10 MG PO (08:07)
[2021-03-03] MEDS: FUROSEMIDE 40 MG TABLET 20 MG PO (08:08)
[2021-03-03 08:14] VITALS: BP 100/55; PULSE 88; RESP 18; TEMP 35.9; O2SAT 100
[2021-03-03] MEDS: MORPHINE IR 15 MG TABLET PO (09:23)
[2021-03-03 10:00] VITALS: O2SAT 100
--- NOTE | 2021-03-03 10:04 | PM.DS.1 ---
History of Present Illness History of Present Illness Date Patient Seen: 03/03/21 Time Patient Seen: 08:45 Chief complaint: Afib Narrative: Per Jacqueline Wang, GREEK PROFESSOR-: Patient is a 85-year-old male Castro Ayala who presents via EMS for evaluation of an unresponsive episode just prior to arrival. Patient has an extensive recent medical history that started with bilateral lower extremity cellulitis. In early January the patient was in inpatient of [facility] for 6 days then returned home with home health and wound care, a week later the patient developed confusion and was unable to get off the commode called Fire Department which then transported him to [facility] ED again and was found to have acute renal injury with creatinine elevated to 4.2. He was transferred to [facility] for further evaluation of acute on chronic renal failure, hyperkalemia, leukocytosis, lactic acidosis, hypertension, distal it heart failure, atrial fibrillation, sick sinus syndrome, asthma, bulbous pemphigoid, chronic lymph edema, hyperlipidemia, and arthritis. He had just been discharged earlier today and was in a cab heading to a SNF in [place] where he would be hospitalized for 6 days and then subsequently discharged home. In the cab the patient mentioned to the passenger coach driver that he felt some pain in his neck and then became unresponsive. He was transported here to [facility] by which time he had returned to his baseline, with no ongoing symptoms. Patient denies any chest pain, changes in vision, weakness, difficulty with swallowing, difficulty with speech, incontinence of urine or bowel, shortness of breath, fever, nausea, vomiting, diarrhea, chills, or body aches. He states that his neck has been bothering him for much of the time in the hospital because they had him positioned awkwardly and also that he was sleeping poorly. Patient has a history of atrial fibrillation, pacemaker (on Coumadin), sick sinus syndrome, pacemaker placement, hypertension, hyperlipidemia, asthma, chronic lymphedema, bulbous Pemphigoid, chronic kidney disease, and diastolic CHF with preserved EF. Patient's vitals upon admit temp 97.6?, BP 99/64, HR 82, R 23, O2 saturation 98% on room air. Patient's labs WBC 13.8, HGB 12, HCT 37.2, Cl 111, BUN 53, creatinine 1.57, EGFR 42.1, BUN creatinine ratio 33.8 RBC 3.95, RDW 16.5, platelets 123, lactate 2.6, lipase 524, troponin 0.062, proBNP 1790, total protein 4.9, albumin 2.8. Chest x-ray: Shows no acute cardiopulmonary abnormalities. Discharge Providers Provider Date of admission: 02/28/21 20:17 Discharge Date: 03/03/21 Primary care physician: Benjamin Rodriguez DO Consults: 02/28/21 19:56 Consult to Occupational Therapy Evaluate & Treat Comment: Near syncopal episode Physician Instructions: Evaluate and treat Consult to Physical Therapy Evaluate & Treat Comment: Near syncopal episode Physician Instructions: Evaluate and Treat Discharge provider: Wojciech Galvez DO Summary Hospital Course Discharge Diagnosis: 1. Near syncopal episode-witnessed, acute, present on admission 2. Chronic atrial fibrillation with rapid ventricular response, 3. Mild Anemia, acute, present on admission 4. Leukocytosis, Mild, likely chronic, present on admission 5. Bullous Pemphigoid, present on admission 6. Rheumatoid arthritis, acute on chronic, not present on admission 7. KYAW, present on admission, improved Hospital Course: This is an 85-year-old male admitted to the hospital after a near syncopal episode after recent discharge to the hospital for acute on chronic renal failure and cellulitis. On the way to a nursing facility in a cab the patient had a witnessed presyncopal episode and was taken to the emergency room here. His symptoms had resolved by the time of admission and there was no overt etiology found. Differentials include syncope from carotid sinus syndrome, orthostatic hypotension, or possibly atrial fibrillation. He had a recent echocardiogram on February 26 which showed moderate aortic stenosis and an EF of 60-65%. During his hospital stay the morning after admission his hemoglobin dropped to 10.2 and platelets declined slightly to 101. They were repeated the following day with improvement in his hemoglobin to 11 and platelet count was 106. The patient's creatinine continues to decline and is now improved to 1.37 down from over 4 during his previous admission at outside hospital. He did develop atrial fibrillation with rapid ventricular response on 25 mg of metoprolol, this improved quite dramatically with increase in his beta-agustin to 75 mg twice a day without a drop in blood pressure. He will continue on 75 mg twice a day (It is unclear as to what he should have been taking after discharge from [facility] as discharge paperwork medication list states 25 mg BID however in the discharge summary this is written as 75 mg BID). He is stable to go to [facility] in [place] today. Status at Discharge Overall status at discharge: patient is progressing back to baseline Time Spent with Patient Time spent: Less than 30 minutes Exam Vital Signs (past 8 hours): - 03/03/21 05:23 03/03/21 06:00 03/03/21 07:38 Temperature 97.5 F L Pulse Rate 85 Respiratory Rate 17 Blood Pressure 113/57 L Pulse Oximetry 100 100 96 03/03/21 08:14 Temperature 96.7 F L Pulse Rate 88 Respiratory Rate 18 Blood Pressure 100/55 L Pulse Oximetry 100 Oxygen Delivery Method Room Air Oxygen Flow Rate 0 Narrative Exam Narrative: General: Patient is a well-developed, well-nourished in no distress at this time. HEENT: Normocephalic, atraumatic, extraocular muscles intact, oral pharynx is clear and mucous membranes are moist. Neck is supple and symmetric, trachea is midline, no adenopathy, no thyroid enlargement, nontender, no masses palpated. Negative for JVD Lungs: Auscultation of all lung kirby are clear without adventitious sounds, wheezes, rhonchi, or rales. Cardio: Irregularly irregular with the normal rate, no murmurs, rubs, or gallops. Abdomen: Soft, nontender, and nondistended Musculoskeletal: Muscle strength and tone are equal within normal limits, no deformity, crepitus, effusions, cyanosis, or clubbing present. Full range of motion intact radial and pedal pulses are normal. Skin: Significant bruising over bilateral arms elbows with dressings in place due to frequent bleeding, bilateral lower extremities with edema, ulcerations to the top of the right foot and to the lower leg area extremely sensitive to touch. Neuro: Alert and orientated x3, strength is +5/5 in all extremities, sensation to touch intact, no gross deficits noted of cranial nerves. Psych: Patient has a well-kept appearance, appropriate affect, mental status attitude thought context and judgment are appropriate for age. Objective Labs Result Diagrams: 03/02/21 05:45 03/03/21 06:05 Labs: Laboratory Results - last 24 hr 03/02/21 03/03/21 10:45 06:05 Sodium 138 Potassium 4.4 Chloride 111 H Carbon Dioxide 24 BUN 60 H Creatinine 1.48 H Estimated GFR 45.1 L BUN/Creatinine Ratio 40.5 H Glucose 92 Calcium 8.1 L SARS-CoV-2 (PCR) Negative [facility] Medical History (Updated 03/01/21 @ 02:26 by ABBI Borges-DILMA) Atrial fibrillation Bullous pemphigoid CHF (congestive heart failure) CKD (chronic kidney disease) History of Mohs micrographic surgery for skin cancer Hyperlipidemia Hypertension Pacemaker Surgical History (Updated 03/01/21 @ 02:26 by CARMEL Borges) History of permanent cardiac pacemaker placement History of surgery on wrist History of total hip arthroplasty Family History Father Pacemaker Brother Pacemaker Mother Alzheimer's dementia Brother Alzheimer's dementia Social History household members: spouse Smoking Status: Never smoker Discharge Plan Discharge Plan Patient Disposition: SNF Other facility: [facility] Provider Discharge Comment: This is an 85-year-old male admitted to the hospital after a near syncopal episode after recent discharge to the hospital for acute on chronic renal failure and cellulitis. On the way to a nursing facility in a cab the patient had a witnessed presyncopal episode and was taken to the emergency room here. His symptoms had resolved by the time of admission and there was no overt etiology found. Differentials include syncope from carotid sinus syndrome, orthostatic hypotension, or possibly atrial fibrillation. He had a recent echocardiogram on February 26 which showed moderate aortic stenosis and an EF of 60-65%. During his hospital stay the morning after admission his hemoglobin dropped to 10.2 and platelets declined slightly to 101. They were repeated the following day with improvement in his hemoglobin to 11 and platelet count was 106. No medication changes were adjusted. The patient's creatinine continues to decline and is now improved to 1.37. He is stable to go to [facility] in [place] today. Medications upon discharge here are now updated to reflect list upon discharge from [facility]. I certify the postop hospital fci care is medically necessary on a continuing basis for any conditions for which he/ she received care during this hospitalization.: Yes The receiving facility has agreed to accept transfer and provide medical treatment.: Yes Discharge orders & Medications Prescriptions: New amlodipine [Norvasc] 5 mg Tablet 2.5 mg PO BEDTIME 3 Days RF: 0 allopurinol 100 mg Tablet 100 mg PO DAILY 30 Days Qty: 30 RF: 0 metoprolol tartrate 25 mg Tablet 75 mg PO BID 30 Days Qty: 180 RF: 0 Continued atorvastatin [Lipitor] 40 MG tablet 40 mg PO BEDTIME Qty: 0 RF: 0 warfarin [Coumadin] 2.5 MG tablet 5 mg PO SEE INSTRUCTIONS Qty: 0 RF: 0 prednisone 5 MG tablet 10 mg PO DAILY Qty: 0 RF: 0 doxycycline hyclate 100 mg Tablet 100 mg PO BID RF: 0 calcium carbonate-vitamin D3 500 mg(1,250mg) -125 unit Tablet 1 tab PO BID RF: 0 famotidine 20 mg Tablet 20 mg PO BID RF: 0 cyanocobalamin (vitamin B-12) 100 mcg tablet 100 mcg PO DAILY RF: 0 lisinopril 20 mg Tablet 20 mg PO DAILY RF: 0 furosemide 20 mg tablet 20 mg PO BID RF: 0 morphine 15 MG tablet 1 tab PO BIDP PRN (Reason: pain) 7 Days Qty: 14 RF: 0 oxycodone 5 mg tablet 5 mg PO Q4H PRN (Reason: Moderate Pain (Scale Score 5-6)) 7 Days Qty: 15 RF: 0 potassium chloride 20 mEq tablet,ER particles/crystals 20 meq PO DAILY RF: 0 Discontinued metoprolol tartrate 25 MG tablet 25 mg PO BID Qty: 0 RF: 0 furosemide 40 MG tablet 40 mg OR DAILY Qty: 0 RF: 0 Follow up/Referrals: Benjamin Rodriguez DO [Primary Care Provider] - Diet/Activity/Treatments Diet: Diet as Tolerated Diet comment: Heart healthy Activity: As tolerated Visit Report/Discharge Packet Instructions: DI for Syncope in Adults (Fainting) Discharge Data Primary Care Provider: Benjamin Rodriguez Attending Provider: Jacqueline Wang VTE Deep Vein Thrombosis/Pulmonary Embolism Present on Admission: No
--- NOTE | 2021-03-03 10:45 | PC.NURSE ---
Report called to [place].Patient taken via [employer] van, patient had all belongings.
== END 2021-03-03 10:50 ==
LOC: ED 19:33 → AC 03-01 12:40
PROVIDERS: Admitting Provider Nurse Practitioner Family; Emergency Provider Emergency Medicine; Family Provider Family Medicine; PCP Family Medicine; Referring Provider Emergency Medicine; Visit Provider Nurse Practitioner Family
DX: R55 Syncope and collapse (principal); I48.20 Chronic atrial fibrillation, unspecified; D64.9 Anemia, unspecified; N17.9 Acute kidney failure, unspecified; D72.829 Elevated white blood cell count, unspecified; L12.0 Bullous pemphigoid; N18.9 Chronic kidney disease, unspecified; I13.0 Hypertensive heart and chronic kidney disease with heart failure and stage 1 through stage 4 chronic kidney disease, or unspecified chronic kidney disease; I50.32 Chronic diastolic (congestive) heart failure; Z79.01 Long term (current) use of anticoagulants; Z95.0 Presence of cardiac pacemaker; Z20.822 Contact with and (suspected) exposure to COVID-19
CPT/HCPCS: 36415; 36569; 36592; 71045; 80048; 80053; 81001; 82550; 82962; 83605; 83690; 83735; 83880; 84484; 85025; 85651; 86140; 87635; 93005; 93010; 96360; 96361; 97162; 97166; 99284; C9803; G0378; J1642